=== PATIENT | male | born 1955 | race Caucasian/White ===

== ENCOUNTER 2018-01-27 20:59 | Observation (INO) | payer OTHER ==
[2018-01-27] MEDS ORDERED: ONDANSETRON 4 MG/2 ML VIAL IVP STA (21:40)
[2018-01-27] MEDS ORDERED: MORPHINE SULFATE 4 MG/ML SYRINGE IV STA (21:40)
[2018-01-27] MEDS ORDERED: SODIUM CHLORIDE 0.9% 1,000 ML IV STA (21:40)
[2018-01-27] MEDS ORDERED: RX INFO: IV CONTRAST WAS GIVEN 1 EACH MISC MISCELLANE PRN (21:41)
[2018-01-27 21:54] LABS: Basophils # (A) 0.1 k/uL (0-0.2); Basophils % (A) 1 %; Eosinophils # (A) 0.3 k/uL (0-0.7); Eosinophils % (A) 3 %; HCT 43.5 % (39.0-53.0); HGB 15.3 gm/dL (13.0-17.5); Lymphocytes # (A) 2.5 k/uL (1.0-4.8); Lymphocytes % (A) 31 %; MCH 30.7 pg (25.0-35.0); MCHC 35.1 g/dL (31.0-37.0); MCV 87.2 fL (80.0-100.0); Mean Platelet Volume 7.4; Monocytes # (A) 0.5 k/uL (0-1.0); Monocytes % (A) 6 %; Neutrophils # (A) 4.8 k/uL (1.3-7.7); Neutrophils % (A) 59 %; Platelet Count 179 k/uL (150-450); RBC 4.99 m/uL (4.30-5.90); RDW 12.8 % (11.5-15.5); WBC 8.3 k/uL (3.8-10.6)
--- NOTE | 2018-01-27 21:54 | XR ---
EXAMINATION TYPE: XR chest 2V DATE OF EXAM: 01/27/2018 COMPARISON: 05/16/2014 HISTORY: Chest pain TECHNIQUE: Frontal and lateral views of the chest are obtained. FINDINGS: There is no heart failure nor confluent pneumonic infiltrate. Costophrenic angles are geri r. There are chest leads. IMPRESSION: Normal chest.
[2018-01-27 22:01] LABS: INR 1.1 (<1.2); Partial Thromboplastin Time 25.6 sec (22.0-30.0)
[2018-01-27 22:09] LABS: ALT 35 U/L (21-72); AST 29 U/L (17-59); Albumin 4.2 g/dL (3.5-5.0); Alkaline Phosphatase 102 U/L (38-126); Anion Gap 12 mmol/L; Blood Urea Nitrogen 17 mg/dL (9-20); Carbon Dioxide 26 mmol/L (22-30); Chloride 103 mmol/L (98-107); Creatine Kinase 226 U/L (55-170); Glucose 103 mg/dL (74-99); Magnesium 1.8 mg/dL (1.6-2.3); Potassium 4.5 mmol/L (3.5-5.1); Sodium 141 mmol/L (137-145); Total Bilirubin 0.5 mg/dL (0.2-1.3); Total Protein 6.5 g/dL (6.3-8.2)
[2018-01-27 22:22] LABS: Troponin I <0.012 ng/mL (0.000-0.034)
--- NOTE | 2018-01-27 23:04 | CT ---
EXAMINATION TYPE: CT angio chest DATE OF EXAM: 01/27/2018 10:51 PM COMPARISON: NONE HISTORY: Upper back pain x2 days. R/O dissection CT DLP: 629 mGycm Automated exposure control for dose reduction was used. CONTRAST: CTA scan of the thorax is performed with IV Contrast, patient injected with 100 mL of Isovue 370, pul monary embolism protocol. There are 3-D post processed images.. FINDINGS: The lungs are clear of infiltrate. There is no pleural effusion. There is no evidence of a pulmonary mass. Thoracic aorta is atheromatous. There is no evidence of aneurysm or dissection. There is no per icardial effusion. There is normal contrast opacification of the pulmonary arteries. There is no medi astinal adenopathy. There are no hilar masses. There is some spurring in the thoracic spine. I see no bony destructive process. The upper abdomen images show decreased enhancement of the left renal cortex compared to the right. T here is no hydronephrosis. IMPRESSION: NEGATIVE CT ANGIOGRAM OF THE CHEST. MILD ATHEROMATOUS CHANGE IN THE THORACIC AORTA. NO EVIDENCE OF PU LMONARY EMBOLISM. THERE IS NOTED DECREASED ENHANCEMENT OF THE LEFT KIDNEY COMPARED TO THE RIGHT THAT COULD RELATE TO RE NAL ISCHEMIA. I SEE NO OBVIOUS ARTERIAL STENOSIS. PYELONEPHRITIS IS ALSO POSSIBLE.
--- NOTE | 2018-01-28 00:33 | ED ---
Chest Pain HPI - General Chief Complaint: Chest Pain Stated Complaint: Chest Pain Time Seen by Provider: 01/27/18 21:26 Source: patient, family Mode of arrival: ambulatory Limitations: no limitations - History of Present Illness Initial Comments: 62 years old male presents with the upper back pain she said the back pain is gone on for last 01-2 days G he had a similar back pain when he had heart attacks 3 years ago and he ended up with a stent pain has been off-and-on he also has a history of aneurysm which is being followed by a [facility] because elevated history diabetes and hypertension. He denies any headaches no neck pain chest pain as such he has some shortness of breath no pleuritic chest pain no abdominal pain no frequency urgency dysuria - Related Data Home Medications Medication Instructions Recorded Confirmed Naproxen [Naprosyn] 500 mg PO Q12HR 01/27/18 01/27/18 Previous Rx's Medication Instructions Recorded Atorvastatin [Lipitor] 80 mg PO DAILY #30 tab 05/17/14 Clopidogrel [Plavix] 75 mg PO DAILY #30 tab 05/17/14 Lisinopril [Zestril] 10 mg PO DAILY #30 tab 05/17/14 Metoprolol Tartrate [Lopressor] 25 mg PO BID #60 tab 05/17/14 Nitroglycerin Sl Tabs [Nitrostat] 0.4 mg SUBLINGUAL Q5M PRN #25 tab 05/17/14 Allergies Allergy/AdvReac Type Severity Reaction Status Date / Time No Known Allergies Allergy Verified 01/27/18 21:32 Review of Systems ROS Statement: Those systems with pertinent positive or pertinent negative responses have been documented in the HPI. ROS Other: All systems not noted in ROS Statement are negative. Past Medical History Past Medical History: Diabetes Mellitus, GERD/Reflux, Hyperlipidemia, Hypertension History of Any Multi-Drug Resistant Organisms: None Reported Past Surgical History: Hernia Repair, Tonsillectomy Past Psychological History: No Psychological Hx Reported Smoking Status: Current every day smoker Past Alcohol Use History: Rare Past Drug Use History: None Reported - Past Family History Sister(s) Family Medical History: Hyperlipidemia Additional Family Medical History / Comment(s): Mutiple stents General Exam Limitations: no limitations Course Vital Signs 01/27/18 01/27/18 21:02 21:44 Temperature 98 F 98.7 F Pulse Rate 64 70 Respiratory 20 18 Rate Blood Pressure 180/81 176/76 O2 Sat by Pulse 98 98 Oximetry EKG is sinus rhythm ventricular rate is 61 NH interval is 222 QRS duration is 104, 80/QTc is 418/420 review of this EKG does not reveal any ST elevation or ST depression Disposition Clinical Impression: Chest pain, History of heart disease Disposition: ADMITTED IP TO THIS HOSP Condition: Good Referrals: Skinny Sims DO [Primary Care Provider] - 1-2 days
[2018-01-28] MEDS ORDERED: MORPHINE SULFATE 4 MG/ML SYRINGE IVP PRN (00:35)
[2018-01-28] MEDS ORDERED: NITROGLYCERIN SL TABS 0.4 MG TAB SUBLINGUAL PRN ×2 (00:35→00:39)
[2018-01-28 02:35] VITALS: BMI 25.2
[2018-01-28 04:28] LABS: Creatine Kinase 187 U/L (55-170)
[2018-01-28 04:42] LABS: Troponin I <0.012 ng/mL (0.000-0.034)
[2018-01-28 04:44] LABS: Creatine Kinase MB 3.3 ng/mL (0.0-2.4)
[2018-01-28 07:36] LABS: Glucose,Whole Blood 110 mg/dL (75-99)
[2018-01-28 08:39] VITALS: RESP 18
[2018-01-28] MEDS ORDERED: NAPROXEN 250 MG TAB PO SCH (09:00)
[2018-01-28] MEDS ORDERED: CLOPIDOGREL 75 MG TAB PO SCH (09:00)
[2018-01-28] MEDS ORDERED: ATORVASTATIN 80 MG TAB PO SCH (09:00)
[2018-01-28] MEDS ORDERED: METOPROLOL TARTRATE 25 MG TAB PO SCH (09:00)
[2018-01-28] MEDS ORDERED: LISINOPRIL 10 MG TAB PO SCH (09:00)
[2018-01-28 09:09] LABS: Creatine Kinase 153 U/L (55-170)
[2018-01-28 09:21] LABS: Troponin I <0.012 ng/mL (0.000-0.034)
[2018-01-28 09:31] LABS: Creatine Kinase MB 3.5 ng/mL (0.0-2.4)
[2018-01-28] MEDS ORDERED: AMINOPHYLLINE 500 MG/20 ML VIAL IV PRN (10:15)
[2018-01-28] MEDS ORDERED: REGADENOSON 0.4 MG/5 ML SYRINGE IV ONE (10:15)
[2018-01-28 12:39] LABS: Glucose,Whole Blood 114 mg/dL (75-99)
--- NOTE | 2018-01-28 13:08 | NM ---
EXAMINATION TYPE: NM stress lexiscan cardiolite DATE OF EXAM: 01/28/2018 COMPARISON: NONE HISTORY: Chest pain, hyperlipidemia, diabetes, prior catheterization and history of tobacco abuse. TECHNIQUE: After the intravenous administration of 9.7 mCi Tc 99m Sestamibi - Cardiolite resting SPE CT images acquired 45 minutes post injection. The patient received 0.4mg Lexiscan, 23.5 mCi Tc 99m Sestamibi - Stress images obtained [address] injection FINDINGS: Review of stress and rest SPECT images demonstrates no distinct perfusion abnormality. Incidental no te is made of physiologic apical thinning Gated analysis shows normal wall motion with an estimated l eft ventricular ejection fraction of 64 %. TID is within normal limits calculated at 1.15. IMPRESSION: 1. No scintigraphic evidence for reversible ischemia. 2. Estimated left ventricular ejection fraction of 64%.
--- NOTE | 2018-01-28 13:42 | P.CRDCN ---
History of Present Illness History of present illness: Mr. Natarajan is a pleasant 62-year-old male past medical history significant for coronary artery disease with stenting to mid-circumflex by Dr. Alba in 2013. He also had a 60-70% lesion in mid-LAD and chronic total occlusion of RCA. He also has hypertension, dyslipidemia, gastroesophageal reflux disease, abdominal aortic aneurysm and chronic tobacco use. He follows [facility] We have been asked to see him in consultation for chest pain. He complains of a nagging pain between shoulder blades that has been constant x2 days. He denies shortness of breath, nausea, vomiting, diaphoresis, palpitations or dizziness. No radiation of the pain and no specific aggravating or alleviating factors. EKG on arrival reveals sinus with first degree AVB with non-specific T-wave abnormalities. Chest xray is negative for an acute cardiopulmonary process. CT angio chest is negative for PE. Laboratory data reviewed, hgb 15.3, plt 179, sodium 141, potassium 4.5, creatinine 1.0, cardiac enzymes negative x3. Current cardiac medications include plavix 75 mg daily, lopressor 25 mg BID, lisinopril 10 mg daily, atorvastatin 80 mg daily and aspirin 81 mg daily. Review of Systems At the time of my exam: CONSTITUTIONAL: Denies fever. Denies chills. EYES: Denies blurred vision. Denies vision changes. Denies eye pain. EARS, NOSE, MOUTH & THROAT: Denies headache. Denies sore throat. Denies ear pain. CARDIOVASCULAR: Pain to the middle of the upper back, making. Denies chest pain. Denies shortness of breath. Denies orthopnea. Denies PND. Denies palpitations. RESPIRATORY: Denies cough. GASTROINTESTINAL: Denies abdominal pain. Denies diarrhea. Denies constipation. Denies nausea. Denies vomiting. MUSCULOSKELETAL: Denies myalgias. INTEGUMENTARY: Denies pruitis. Denies rash. NEUROLOGIC: Denies numbness. Denies tingling. Denies weakness. PSYCHIATRIC: Denies anxiety. Denies depression. ENDOCRINE: Denies fatigue. Denies weight change. Denies polydipsia. Denies polyurina. GENITOURINARY: Denies burning, hematuria or urgency with micturation. HEMATOLOGIC: Denies history of anemia. Denies bleeding. Past Medical History Past Medical History: Diabetes Mellitus, GERD/Reflux, Hyperlipidemia, Hypertension Additional Past Medical History / Comment(s): AAA - pt states 4.7cm last checked at the [place] History of Any Multi-Drug Resistant Organisms: None Reported Past Surgical History: Heart Catheterization With Stent, Hernia Repair, Tonsillectomy Past Anesthesia/Blood Transfusion Reactions: No Reported Reaction Date of Last Stent Placement:: 05/16/2014 Past Psychological History: No Psychological Hx Reported Smoking Status: Current every day smoker Past Alcohol Use History: Rare Past Drug Use History: None Reported - Past Family History Sister(s) Family Medical History: Hyperlipidemia, Myocardial Infarction ([place]) Additional Family Medical History / Comment(s): Mutiple stents - [place] at age 66 and at that time Medications and Allergies Home Medications Medication Instructions Recorded Confirmed Type Atorvastatin [Lipitor] 80 mg PO DAILY #30 tab 05/17/14 01/28/18 Rx Clopidogrel [Plavix] 75 mg PO DAILY #30 tab 05/17/14 01/28/18 Rx Lisinopril [Zestril] 10 mg PO DAILY #30 tab 05/17/14 01/28/18 Rx Metoprolol Tartrate [Lopressor] 25 mg PO BID #60 tab 05/17/14 01/28/18 Rx Nitroglycerin Sl Tabs [Nitrostat] 0.4 mg SUBLINGUAL Q5M PRN #25 tab 05/17/14 Rx Naproxen [Naprosyn] 500 mg PO Q12HR 01/27/18 01/28/18 History Aspirin [Adult Low Dose Aspirin EC] 81 mg PO BID 01/28/18 01/28/18 History Allergies Allergy/AdvReac Type Severity Reaction Status Date / Time No Known Allergies Allergy Verified 01/27/18 21:32 Physical Exam Vitals: Vital Signs Temp Pulse Pulse Resp BP BP Pulse Ox 01/28/18 07:50 97.9 F 58 L 18 153/56 94 L 01/28/18 02:57 98.5 F 58 L 16 139/69 97 01/28/18 02:45 58 L 16 01/28/18 01:19 74 16 152/65 97 01/28/18 00:57 98.4 F 64 16 141/64 94 L 01/27/18 21:44 98.7 F 70 18 176/76 98 01/27/18 21:02 98 F 64 20 180/81 98 Intake and Output 01/27/18 01/28/18 01/28/18 22:59 06:59 14:59 Other: Voiding Method Toilet Toilet # Voids 2 1 Weight 79.832 kg 79.832 kg Blood pressure 149/59 heart rate 65 afebrile maintaining oxygen saturation on room air GENERAL: This is a 62-year-old male in no apparent distress at the time of my examination. HEENT: Head is atraumatic, normocephalic. Pupils are equal, round. Sclerae anicteric. Conjunctivae are clear. Mucous membranes of the mouth are moist. Neck is supple. There is no jugular venous distention. No carotid bruit is heard. LUNGS: Clear to auscultation no wheezes, rales or rhonchi. No chest wall tenderness is noted on palpation or with deep breathing. HEART: Regular rate and rhythm without murmurs, rubs or gallops. S1 and S2 heard. ABDOMEN: Soft, nontender. Bowel sounds are heard. No organomegaly noted. EXTREMITIES: No evidence of peripheral edema and no calf tenderness noted. VASCULAR: Radial and dorsalis pedis pulses palpated, no evidence of clubbing. NEUROLOGIC: Patient is awake, alert and oriented x3. Results 01/27/18 21:18 01/27/18 21:18 Cardiac Enzymes 01/27/18 01/27/18 01/28/18 Range/Units :18 21:18 03:33 AST 29 (17-59) U/L CK-MB (CK-2) 4.0 H* 3.3 H* (0.0-2.4) ng/mL Troponin I <0.012 <0.012 (0.000-0.034) ng/mL Coagulation 01/27/18 Range/Units 21:18 PT 11.0 (9.0-12.0) sec APTT 25.6 (22.0-30.0) sec CBC 01/27/18 Range/Units 21:18 WBC 8.3 (3.8-10.6) k/uL RBC 4.99 (4.30-5.90) m/uL Hgb 15.3 (13.0-17.5) gm/dL Hct 43.5 (39.0-53.0) % Plt Count 179 (150-450) k/uL Comprehensive Metabolic Panel 01/27/18 Range/Units 21:18 Sodium 141 (137-145) mmol/L Potassium 4.5 (3.5-5.1) mmol/L Chloride 103 (98-107) mmol/L Carbon Dioxide 26 (22-30) mmol/L BUN 17 (9-20) mg/dL Creatinine 1.00 (0.66-1.25) mg/dL Glucose 103 H (74-99) mg/dL Calcium 9.0 (8.4-10.2) mg/dL AST 29 (17-59) U/L ALT 35 (21-72) U/L Alkaline Phosphatase 102 (38-126) U/L Total Protein 6.5 (6.3-8.2) g/dL Albumin 4.2 (3.5-5.0) g/dL Current Medications Generic Name Dose Route Start Last Admin Trade Name Freq PRN Reason Stop Dose Admin Aspirin 325 mg 01/29/18 09:00 Aspirin PO DAILY [facility] Atorvastatin Calcium 80 mg 01/28/18 09:00 Lipitor PO DAILY [facility] Clopidogrel Bisulfate 75 mg 01/28/18 09:00 Plavix PO DAILY [facility] Lisinopril 10 mg 01/28/18 09:00 Zestril PO DAILY [facility] Metoprolol Tartrate 25 mg 01/28/18 09:00 Lopressor PO BID [facility] Miscellaneous Information 1 each 01/27/18 21:41 Rx Info: Iv Contrast Was Given MISCELLANE 01/29/18 21:42 DAILY PRN Per Protocol Morphine Sulfate 2 mg 01/28/18 00:35 Morphine Sulfate (Inj) IVP Q5M PRN Chest Pain Naproxen 500 mg 01/28/18 09:00 Naprosyn PO Q12HR [facility] Nitroglycerin 0.4 mg 01/28/18 00:35 Nitrostat SUBLINGUAL Q5M PRN Chest Pain Intake and Output 01/27/18 01/28/18 01/28/18 22:59 06:59 14:59 Other: Voiding Method Toilet Toilet # Voids 2 1 Weight 79.832 kg 79.832 kg 01/27/18 21:18 01/27/18 21:18 Assessment and Plan Assessment: ASSESSMENT 1. Chest pain, atypical. An acute coronary event has been ruled out with no EKG evidence of ischemia and normal cardiac enzymes. 2. History of coronary artery disease with angioplasty to mid circumflex artery 2013 with totally occluded RCA and 60-70% disease to mid-LAD 3. Hypertension 4. Dyslipidemia 5. Diabetes mellitus 6. Chronic nicotine dependence 7. History of aortic ascending aneurysm PLAN Obtain 2D echocardiogram and doppler study to assess cardiac structure and function. Perform Lexiscan stress test to assess for reversible cardiac ischemia. Further recommendations will be based on clinical course. Thank you kindly for this consultation. Nurse Practitioner note has been reviewed, I agree with a documented findings and plan of care. Patient was seen and examined.
--- NOTE | 2018-01-28 15:01 | ECHOF ---
Referral Reason:cp MEASUREMENTS -------- HEIGHT: 152.4 cm WEIGHT: 79.8 kg BP: 153/76 RVIDd: 2.7 cm (< 3.3) IVSd: 1.3 cm (0.6 - 1.1) LVIDd: 3.5 cm (3.9 - 5.3) LVPWd: 1.4 cm (0.6 - 1.1) IVSs: 1.5 cm LVIDs: 2.7 cm LVPWs: 1.5 cm LA Diam: 2.4 cm (2.7 - 3.8) LAESV Index (A-L): 25.68 ml/m Ao Diam: 3.1 cm (2.0 - 3.7) AV Cusp: 1.6 cm (1.5 - 2.6) LA Diam: 3.0 cm (2.7 - 3.8) MV EXCURSION: 11.800 mm (> 18.000) MV EF SLOPE: 71 mm/s (70 - 150) EPSS: 0.2 cm MV E Sincere: 0.72 m/s MV DecT: 233 ms MV A Sincere: 0.80 m/s MV E/A Ratio: 0.89 RAP: 5.00 mmHg RVSP: 24.21 mmHg FINDINGS -------- Sinus rhythm. This was a technically good study. The left ventricular size is normal. There is mild concentric left ventricular hypertrophy. Overa ll left ventricular systolic function is normal with, an EF between 55 - 60 %. The right ventricle is normal in size. The left atrial size is normal. Normal LA size by volume 22+/-6 ml/m2. The right atrial size is normal. The aortic valve is trileaflet, and appears structurally normal. No aortic stenosis or regurgitation. Mild mitral annular calcification present. Mild mitral regurgitation is present. Mild tricuspid regurgitation present. There is no evidence of pulmonary hypertension. The right v entricular systolic pressure, as measured by Doppler, is 24.21mmHg. Trace/mild (physiologic) pulmonic regurgitation. The aortic root size is normal. There is no pericardial effusion. CONCLUSIONS -------- 1. The left ventricular size is normal. 2. There is mild concentric left ventricular hypertrophy. 3. Overall left ventricular systolic function is normal with, an EF between 55 - 60 %. 4. The right ventricle is normal in size. 5. Normal LA size by volume 22+/-6 ml/m2. 6. The aortic valve is trileaflet, and appears structurally normal. No aortic stenosis or regurgitati on. 7. Mild mitral annular calcification present. 8. Mild mitral regurgitation is present. 9. Mild tricuspid regurgitation present. 10. There is no evidence of pulmonary hypertension. 11. The right ventricular systolic pressure, as measured by Doppler, is 24.21mmHg. 12. Trace/mild (physiologic) pulmonic regurgitation. 13. The aortic root size is normal. 14. There is no pericardial effusion. WHEEL ALIGNER: Rosetta Martin RDCS
--- NOTE | 2018-01-28 15:35 | P.HPIM ---
History of Present Illness Please note that this is the first time taking care of the patient. He is an you admission and he cleared today for discharge This is an H&P and Discharge Summary This is a pleasant 62 years old male with past medical history of coronary artery disease status post stenting in 2013, hypertension, hyperlipidemia, GERD , abdominal aortic aneurysm, chronic tobacco use. Who presents because of acute back pain between both shoulder blades which is similar to his heart attack before, patient underwent CTPA which was negative for PE and he has been evaluated by electrophysiology nurse practitioner. He underwent stress test which was nonsignificant for reversible ischemia, his echo shows EF 55-60%. Patient currently complains is very minimal back pain, almost resolved completely as per patient. And patient thinks he can be discharged today Review of Systems CONSTITUTIONAL: No fever, no malaise, no fatigue. HEENT: No recent visual problems or hearing problems. Denied any sore throat. CARDIOVASCULAR: No orthopnea, PND, no palpitations, no syncope. PULMONARY: No shortness of breath, no cough, no hemoptysis. GASTROINTESTINAL: No diarrhea, no nausea, no vomiting, no abdominal pain. Normoactive bowel sounds. NEUROLOGICAL: No headaches, no weakness, no numbness. HEMATOLOGICAL: Denies any bleeding or petechiae. GENITOURINARY: Denies any burning micturition, frequency, or urgency. MUSCULOSKELETAL/RHEUMATOLOGICAL: Denies any joint pain, swelling, or any muscle pain. ENDOCRINE: Denies any polyuria or polydipsia. The rest of the 14-point review of systems is negative. Past Medical History Past Medical History: Diabetes Mellitus, GERD/Reflux, Hyperlipidemia, Hypertension Additional Past Medical History / Comment(s): AAA - pt states 4.7cm last checked at the [place] History of Any Multi-Drug Resistant Organisms: None Reported Past Surgical History: Heart Catheterization With Stent, Hernia Repair, Tonsillectomy Past Anesthesia/Blood Transfusion Reactions: No Reported Reaction Date of Last Stent Placement:: 05/16/2014 Past Psychological History: No Psychological Hx Reported Smoking Status: Current every day smoker Past Alcohol Use History: Rare Past Drug Use History: None Reported - Past Family History Sister(s) Family Medical History: Hyperlipidemia, Myocardial Infarction ([place]) Additional Family Medical History / Comment(s): Mutiple stents - [place] at age 64 and at that time Medications and Allergies Home Medications Medication Instructions Recorded Confirmed Type Atorvastatin [Lipitor] 80 mg PO DAILY #30 tab 05/17/14 01/28/18 Rx Clopidogrel [Plavix] 75 mg PO DAILY #30 tab 05/17/14 01/28/18 Rx Lisinopril [Zestril] 10 mg PO DAILY #30 tab 05/17/14 01/28/18 Rx Metoprolol Tartrate [Lopressor] 25 mg PO BID #60 tab 05/17/14 01/28/18 Rx Nitroglycerin Sl Tabs [Nitrostat] 0.4 mg SUBLINGUAL Q5M PRN #25 tab 05/17/14 Rx Naproxen [Naprosyn] 500 mg PO Q12HR 01/27/18 01/28/18 History Aspirin [Adult Low Dose Aspirin EC] 81 mg PO BID 01/28/18 01/28/18 History Allergies Allergy/AdvReac Type Severity Reaction Status Date / Time No Known Allergies Allergy Verified 01/27/18 21:32 Physical Exam Vitals: Vital Signs Temp Pulse Pulse Resp BP BP BP 01/28/18 12:30 97.8 F 65 18 149/59 01/28/18 12:00 65 18 01/28/18 07:50 97.9 F 58 L 18 153/56 01/28/18 02:57 98.5 F 58 L 16 139/69 01/28/18 02:45 58 L 16 01/28/18 01:19 74 16 152/65 01/28/18 00:57 98.4 F 64 16 141/64 01/27/18 21:44 98.7 F 70 18 176/76 01/27/18 21:02 98 F 64 20 180/81 Pulse Ox 01/28/18 12:30 96 01/28/18 12:00 01/28/18 07:50 94 L 01/28/18 02:57 97 01/28/18 02:45 01/28/18 01:19 97 01/28/18 00:57 94 L 01/27/18 21:44 98 01/27/18 21:02 98 Intake and Output 01/28/18 01/28/18 01/28/18 06:59 14:59 22:59 Intake Total 440 Balance 440 Intake: Oral 240 Other 200 Other: Voiding Method Toilet Toilet # Voids 2 1 Weight 79.832 kg GENERAL: The patient is alert and oriented x3, not in any acute distress. Well developed, well nourished. HEENT: Pupils are round and equally reacting to light. EOMI. No scleral icterus. No conjunctival pallor. Normocephalic, atraumatic. No pharyngeal erythema. No thyromegaly. CARDIOVASCULAR: S1 and S2 present. No murmurs, rubs, or gallops. PULMONARY: Chest is clear to auscultation, no wheezing or crackles. ABDOMEN: Soft, nontender, nondistended, normoactive bowel sounds. No palpable organomegaly. MUSCULOSKELETAL: No joint swelling or deformity. EXTREMITIES: No cyanosis, clubbing, or pedal edema. NEUROLOGICAL: Gross neurological examination did not reveal any focal deficits. SKIN: No rashes. Results CBC & Chem 7: 01/27/18 21:18 01/27/18 21:18 Labs: Abnormal Lab Results - Last 24 Hours (Table) 01/27/18 01/27/18 01/28/18 Range/Units 21:18 21:18 03:33 Glucose 103 H (74-99) mg/dL POC Glucose (mg/dL) (75-99) mg/dL Total Creatine Kinase 226 H 187 H (55-170) U/L CK-MB (CK-2) 4.0 H* 3.3 H* (0.0-2.4) ng/mL 01/28/18 01/28/18 01/28/18 Range/Units 07:33 08:16 12:32 Glucose (74-99) mg/dL POC Glucose (mg/dL) 110 H 114 H (75-99) mg/dL Total Creatine Kinase (55-170) U/L CK-MB (CK-2) 3.5 H* (0.0-2.4) ng/mL Thrombosis Risk Factor Assmnt - Choose All That Apply Each Risk Factor Represents 2 Points: Age 61-74 years Thrombosis Risk Factor Assessment Total Risk Factor Score: 2 Thrombosis Risk Factor Assessment Level: Low Risk Assessment and Plan Plan: -Acute Atypical chest pain, back pain has been evaluated by electrophysiology nurse practitioner team. Stress test shows no significant of reversible ischemia. Echo was done showing EF 55-60%. Patient chest pain is significantly improved and now is telling me is less than 1/10, he says is really very mild and he wants to go. Patient was been cleared by cardiology team for discharge. I agree patient's looks his stable and can be discharged home however he needs follow-up as an outpatient. I discussed the follow-up recommendation with the patient and he confirmed to me he will call to follow-up with his PCP within one week, and to follow up with his electrophysiology nurse practitioner at [facility] in 1-2 weeks -Hyperlipidemia continue with same treatment -Hypertension continue with same treatment
--- NOTE | 2018-01-28 15:36 | P.DS ---
Providers Date of admission: 01/28/18 00:35 Attending physician: Georgina Mcdermott Consults: 01/28/18 00:35 Consult Physician Urgent Consulting Provider: Tio Escalona Consult Reason/Comments: Chest pain with a history of coronary artery disease with stents in place Do you want consulting provider notified?: Yes [facility] Course: This is a pleasant 62 years old male presents with acute upper back pain of 2 days' duration which was now near completely resolved and is very minimal and the patient wants to be discharged today, patient has been evaluated by grid caster he had negative stress test. And he was cleared for discharge Please look at H and P from today for more details discharge information Patient Condition at Discharge: Good Plan - Discharge Summary New Discharge Prescriptions: No Action Atorvastatin [Lipitor] 80 mg PO DAILY #30 tab Clopidogrel [Plavix] 75 mg PO DAILY #30 tab Lisinopril [Zestril] 10 mg PO DAILY #30 tab Metoprolol Tartrate [Lopressor] 25 mg PO BID #60 tab Nitroglycerin Sl Tabs [Nitrostat] 0.4 mg SUBLINGUAL Q5M PRN #25 tab PRN Reason: Chest Pain Naproxen [Naprosyn] 500 mg PO Q12HR Aspirin [Adult Low Dose Aspirin EC] 81 mg PO BID Discharge Medication List Atorvastatin [Lipitor] 80 mg PO DAILY #30 tab 05/17/14 [Rx] Clopidogrel [Plavix] 75 mg PO DAILY #30 tab 05/17/14 [Rx] Lisinopril [Zestril] 10 mg PO DAILY #30 tab 05/17/14 [Rx] Metoprolol Tartrate [Lopressor] 25 mg PO BID #60 tab 05/17/14 [Rx] Nitroglycerin Sl Tabs [Nitrostat] 0.4 mg SUBLINGUAL Q5M PRN #25 tab 05/17/14 [Rx ] Naproxen [Naprosyn] 500 mg PO Q12HR 01/27/18 [History] Aspirin [Adult Low Dose Aspirin EC] 81 mg PO BID 01/28/18 [History] Follow up Appointment(s)/Referral(s): Ranulfo Hassan MD [STAFF PHYSICIAN] - 2 Weeks Skinny Sims DO [Primary Care Provider] - 1-2 days
--- NOTE | 2018-01-28 16:17 | EST ---
EXERCISE STRESS DATE OF SERVICE: 01/28/2018 AGE: 62 SEX: Male. HT: 5'10" WT: 176 pounds. PROTOCOL: Lexiscan Cardiolite STAGE: DURATION OF EXERCISE: HEART RATE REST: 71 BLOOD PRESSURE REST: 128/89 MAXIMUM HEART RATE ACHIEVED: 115 MAXIMUM BLOOD PRESSURE: 150/94 85% MPHR: 133 100% MPHR: 156 METS: INDICATIONS: Chest pain. CLINICAL INFORMATION: STRESS DATA: Pre-testing physical examination showed a heart rate of 71, pressure 128/89 mmHg. Baseline EKG showed sinus mechanism. Lexiscan 0.4 mg was given over 15 seconds per protocol. The maximum heart rate was 115 beats per minute and maximum pressure was 150/94 mmHg. Clinically the patient did not have any symptoms and the EKG did not show any significant ST or T-wave abnormalities concerning for ischemia. CONCLUSION: 1. Non-diagnostic electrocardiogram stress testing in response to Lexiscan. 2. Please follow up on the Cardiolite portion on separate report from the radiology department. MMODL / IJN: [id number] /
[2018-01-28 16:28] VITALS: BP 133/55; PULSE 59; TEMP 97.9
[2018-01-28 21:51] LABS: Hemoglobin A1C 6.3 % (4.0-6.0)
[2018-01-29] MEDS ORDERED: ASPIRIN 81 MG PO SCH (09:00)
[2018-01-29] MEDS ORDERED: ASPIRIN 325 MG TAB PO SCH (09:00)
== END 2018-01-28 16:50 | disposition home or self-care (01) ==
LOC: EC 20:59 → 3OBS 01-28 00:35
PROVIDERS: ADMIT Hospitalist; ATTEND Hospitalist
DX: R07.89 Other chest pain (principal); M54.6 Pain in thoracic spine; I25.10 Atherosclerotic heart disease of native coronary artery without angina pectoris; I25.82 Chronic total occlusion of coronary artery; I71.4 Abdominal aortic aneurysm, without rupture; I10 Essential (primary) hypertension; Z95.5 Presence of coronary angioplasty implant and graft; F17.200 Nicotine dependence, unspecified, uncomplicated; K21.9 Gastro-esophageal reflux disease without esophagitis; E78.5 Hyperlipidemia, unspecified; Z79.82 Long term (current) use of aspirin; Z79.02 Long term (current) use of antithrombotics/antiplatelets; Z79.1 Long term (current) use of non-steroidal anti-inflammatories (NSAID); Z79.899 Other long term (current) drug therapy; Z86.39 Personal history of other endocrine, nutritional and metabolic disease; Z82.49 Family history of ischemic heart disease and other diseases of the circulatory system; Z83.49 Family history of other endocrine, nutritional and metabolic diseases
CPT/HCPCS: 99285 ×2; 96374 ×2; 96375 ×2; 96361 ×4; 36415; 93005; 93017; 93306; 80053; 82550 ×2; 82553 ×2; 83735; 84484 ×2; 85025; 85610; 85730; 83036; 71046; 71275; 78452; G0378; A9500; J2270; J2405; J2785; Q9967

== ENCOUNTER 2019-10-14 16:55 | Emergency (ER) | payer OTHER ==
[2019-10-14 17:10] VITALS: TEMP 98
[2019-10-14 18:40] VITALS: BP 161/78; PULSE 82; RESP 18
[2019-10-14] MEDS ORDERED: METOPROLOL SUCCINATE (ER) 25 MG TAB.ER.24H PO STA (18:42)
--- NOTE | 2019-10-14 19:08 | ED ---
General Adult HPI - General Chief complaint: Recheck/Abnormal Lab/Rx Stated complaint: High BP Time Seen by Provider: 10/14/19 17:10 Source: patient, RN notes reviewed, old records reviewed Mode of arrival: ambulatory Limitations: no limitations - History of Present Illness Initial comments: This is a 64-year-old male who presents emergency department after having a stent placed yesterday at another facility. Patient states he has been having a week of headache as well as upper back pain in the shoulder blades. Patient states the pain continues even after the stent placement. Patient states he took his blood pressure at home and it was over 200 in each arm he called his bottom painter in the told to come the emergency department. Patient came in and states he feels fine he has no chest pain difficult breathing shortness of breath or palpitations. Patient states the back pain and headache did not change. Patient states he only came in because his blood pressure was over 200 and he was told to come in. Patient denies any fever chills. - Related Data Home Medications Medication Instructions Recorded Confirmed Aspirin [Adult Low Dose Aspirin EC] 81 mg PO BID 01/28/18 01/28/18 Previous Rx's Medication Instructions Recorded Atorvastatin [Lipitor] 80 mg PO DAILY #30 tab 05/17/14 Clopidogrel [Plavix] 75 mg PO DAILY #30 tab 05/17/14 Lisinopril [Zestril] 10 mg PO DAILY #30 tab 05/17/14 Metoprolol Tartrate [Lopressor] 25 mg PO BID #60 tab 05/17/14 Nitroglycerin Sl Tabs [Nitrostat] 0.4 mg SUBLINGUAL Q5M PRN #25 tab 05/17/14 Allergies Allergy/AdvReac Type Severity Reaction Status Date / Time dexamethasone Allergy Chest Pain Verified 10/14/19 17:10 Review of Systems ROS Statement: Those systems with pertinent positive or pertinent negative responses have been documented in the HPI. ROS Other: All systems not noted in ROS Statement are negative. Past Medical History Past Medical History: Cancer, Diabetes Mellitus, GERD/Reflux, Hyperlipidemia, Hypertension Additional Past Medical History / Comment(s): AAA - pt [facility] History of Any Multi-Drug Resistant Organisms: None Reported Past Surgical History: Heart Catheterization With Stent, Hernia Repair, Tonsillectomy Additional Past Surgical History / Comment(s): kidney stent Past Anesthesia/Blood Transfusion Reactions: No Reported Reaction Date of Last Stent Placement:: 05/16/2014 Past Psychological History: No Psychological Hx Reported Smoking Status: Current every day smoker Past Alcohol Use History: Rare Past Drug Use History: None Reported - Past Family History Sister(s) Family Medical History: Hyperlipidemia, Myocardial Infarction ([place]) Additional Family Medical History / Comment(s): Mutiple stents - [place] at age 64 and at that time General Exam - General Exam Comments Initial Comments: GENERAL: Patient is well-developed and well-nourished. Patient is nontoxic and well- hydrated and is in no acute distress. ENT: Neck is soft and supple. No significant lymphadenopathy is noted. Oropharynx is clear. Moist mucous membranes. Neck has full range of motion without eliciting any pain. EYES: The sclera were anicteric and conjunctiva were pink and moist. Extraocular movements were intact and pupils were equal round and reactive to light. Eyelids were unremarkable. PULMONARY: Unlabored respirations. Good breath sounds bilaterally. No audible rales rhonchi or wheezing was noted. CARDIOVASCULAR: There is a regular rate and rhythm without any murmurs gallops or rubs. ABDOMEN: Soft and nontender with normal bowel sounds. SKIN: Skin is clear with no lesions or rashes and otherwise unremarkable. NEUROLOGIC: Patient is alert and oriented x3. Cranial nerves II through XII are grossly intact. Motor and sensory are also intact. Normal speech, volume and content. Symmetrical smile. MUSCULOSKELETAL: Normal extremities with adequate strength and full range of motion. LYMPHATICS: No significant lymphadenopathy is noted PSYCHIATRIC: Normal psychiatric evaluation. Limitations: no limitations Course Vital Signs 10/14/19 10/14/19 10/14/19 17:07 18:20 18:30 Temperature 98.0 F Pulse Rate 80 78 82 Respiratory 20 18 16 Rate Blood Pressure 164/82 161/77 150/77 O2 Sat by Pulse 97 98 98 Oximetry 10/14/19 18:39 Temperature Pulse Rate 82 Respiratory 18 Rate Blood Pressure 161/78 O2 Sat by Pulse 100 Oximetry Medical Decision Making - Medical Decision Making Patient's blood pressure was taken multiple times every 10 minutes. Patient states his blood pressure here was at its baseline. Patient had not taken his evening metoprolol so was given to him here. Patient was comfortable going home he stated he would return if there are any symptoms. EKG showed normal sinus rhythm at 75 bpm OK interval 192 QRS 102 QT interval 424 QTC is 473 per patient's EKG shows no ST segment elevation or depression. I compared this EKG to an old EKG it did show Q waves in the inferior leads. Disposition Clinical Impression: Hypertension Disposition: HOME SELF-CARE Condition: Good Instructions (If sedation given, give patient instructions): Hypertension (ED) Is patient prescribed a controlled substance at d/c from ED?: No Referrals: [facility],Clinic [Primary Care Provider] - 1-2 days Time of Disposition: 19:07
== END 2019-10-14 19:19 | disposition home or self-care (01) ==
LOC: EC 16:55
DX: I10 Essential (primary) hypertension (principal); M54.6 Pain in thoracic spine; R51 Headache; F17.200 Nicotine dependence, unspecified, uncomplicated; Z88.8 Allergy status to other drugs, medicaments and biological substances; Z79.82 Long term (current) use of aspirin; Z85.9 Personal history of malignant neoplasm, unspecified; Z86.79 Personal history of other diseases of the circulatory system; Z95.5 Presence of coronary angioplasty implant and graft; Z96.0 Presence of urogenital implants; Z82.49 Family history of ischemic heart disease and other diseases of the circulatory system
CPT/HCPCS: 99284

== ENCOUNTER 2020-11-25 16:28 | Emergency (ER) | payer OTHER, MEDICARE ==
[2020-11-25 16:40] VITALS: TEMP 98.1
[2020-11-25] MEDS ORDERED: NITROGLYCERIN OINT 1 INCH/GM PACKET TOPICAL STA (16:55)
[2020-11-25] MEDS ORDERED: OXYMETAZOLINE 0.05% NASL SPRAY 1 SPRAY BOTTLE NASAL STA (16:56)
--- NOTE | 2020-11-25 16:59 | ED ---
ENT HPI - General Chief complaint: ENT Stated complaint: Nosebleed Time Seen by Provider: 11/25/20 16:42 Source: patient Mode of arrival: ambulatory Limitations: no limitations - History of Present Illness Initial comments: 65-year-old male presents to emergency department with a chief complaint of a nosebleed. He states this occurred since 5am. Patient reports he was planning on coming to the emergency department, however the bleeding stopped by 9 AM. However later returned again. States he is bleeding from both nostrils and is also swallowing and spitting up blood as well. He reports elevated blood pressure but states his blood pressure typically "jumps around", he denies any chest pain or shortness of breath. Patient takes Plavix and aspirin. He does report a rhinoplasty performed about 2 months ago as well as nasal polyp removal. - Related Data Home Medications Medication Instructions Recorded Confirmed Aspirin [Adult Low Dose Aspirin EC] 81 mg PO HS 01/28/18 11/25/20 Atorvastatin [Lipitor] 80 mg PO HS 11/25/20 11/25/20 Clopidogrel [Plavix] 75 mg PO HS 11/25/20 11/25/20 lisinopriL [Zestril] 10 mg PO HS 11/25/20 11/25/20 oxyCODONE HCL [OxyIR] 2.5 mg PO DAILY@0800 11/25/20 11/25/20 oxyCODONE HCL [OxyIR] 5 mg PO HS 11/25/20 11/25/20 Previous Rx's Medication Instructions Recorded Metoprolol Tartrate [Lopressor] 25 mg PO BID #60 tab 05/17/14 Nitroglycerin Sl Tabs [Nitrostat] 0.4 mg SUBLINGUAL Q5M PRN #25 tab 05/17/14 Cephalexin [Keflex] 500 mg PO Q6HR #28 cap 11/25/20 Allergies Allergy/AdvReac Type Severity Reaction Status Date / Time dexamethasone Allergy Chest Pain Verified 11/25/20 18:10 Review of Systems ROS Statement: Those systems with pertinent positive or pertinent negative responses have been documented in the HPI. ROS Other: All systems not noted in ROS Statement are negative. Past Medical History Past Medical History: Cancer, Diabetes Mellitus, GERD/Reflux, Hyperlipidemia, H ypertension Additional Past Medical History / Comment(s): AAA - pt states 4.7cm last checked at the [facility] History of Any Multi-Drug Resistant Organisms: None Reported Past Surgical History: Heart Catheterization With Stent, Hernia Repair, Tonsillectomy Additional Past Surgical History / Comment(s): kidney stent nasal polys removed Past Anesthesia/Blood Transfusion Reactions: No Reported Reaction Date of Last Stent Placement:: 05/16/2014 Past Psychological History: No Psychological Hx Reported Smoking Status: Current every day smoker Past Alcohol Use History: Rare Past Drug Use History: None Reported - Past Family History Sister(s) Family Medical History: Hyperlipidemia, Myocardial Infarction ([place]) Additional Family Medical History / Comment(s): Mutiple stents - [place] at age 64 and at that time General Exam Limitations: no limitations General appearance: alert, in no apparent distress Head exam: Present: atraumatic, normocephalic, normal inspection Eye exam: Present: normal appearance, PERRL, EOMI Pupils: Present: normal accommodation ENT exam: Present: normal exam, normal oropharynx (Bleeding from both nostrils. Unable to detect a source of bleeding. Residual blood noted from posterior pharynx), mucous membranes moist, TM's normal bilaterally, normal external ear exam Neck exam: Present: normal inspection, full ROM. Absent: tenderness Respiratory exam: Present: normal lung sounds bilaterally. Absent: respiratory distress Cardiovascular Exam: Present: regular rate, normal rhythm, normal heart sounds Extremities exam: Present: normal inspection, full ROM, normal capillary refill. Absent: tenderness Back exam: Present: normal inspection, full ROM. Absent: tenderness Neurological exam: Present: alert, oriented X3, normal gait Psychiatric exam: Present: normal affect, normal mood Skin exam: Present: warm, dry, intact, normal color Course Vital Signs 11/25/20 11/25/20 11/25/20 16:37 17:47 18:00 Temperature 98.1 F Pulse Rate 87 74 Respiratory 20 18 18 Rate Blood Pressure 199/72 174/74 181/85 O2 Sat by Pulse 96 100 Oximetry Medical Decision Making - Medical Decision Making 65-year-old male presents to emergency Department with a chief complaint of a nosebleed. On physical examination, he has bilateral epistaxis, mild bleeding only. I was not able to visualize the source of bleeding. He did have residual blood noted in the posterior pharynx. Possibly could be a posterior bleed. Nose clamp was immediately applied and Afrin as well. On reevaluation, patient reports significant decrease in bleeding. I also applied Nitropaste decrease his blood pressure as well as 25 mg of metoprolol which is what he takes at home. Patient was initially hypertensive, however this improved. Patient did report feeling anxious. He had a recent septoplasty, 3 weeks ago. For this reason I did not want to apply a Rhino Rocket. After a period of observation, patient has almost complete resolution of the bleeding. He can follow-up with his ENT specialist in the morning. Strict return parameters were thoroughly discussed with patient was understanding and agreeable. He did not have any lightheadedness, dizziness, nausea or vomiting. Case discussed with Disposition Clinical Impression: Epistaxis not due to trauma Disposition: HOME SELF-CARE Condition: Stable Instructions (If sedation given, give patient instructions): Nosebleed (ED) Additional Instructions: Follow-up with ENT. Return to emergency department if symptoms worsen. Prescriptions: Cephalexin [Keflex] 500 mg PO Q6HR #28 cap Is patient prescribed a controlled substance at d/c from ED?: No Referrals: [facility],Clinic [Primary Care Provider] - 1-2 days Time of Disposition: 19:10
[2020-11-25 17:48] VITALS: RESP 18
[2020-11-25] MEDS ORDERED: METOPROLOL SUCCINATE (ER) 25 MG TAB.ER.24H PO STA (18:07)
[2020-11-25 18:44] VITALS: BP 181/85; PULSE 74
== END 2020-11-25 19:16 | disposition home or self-care (01) ==
LOC: EC 16:28
DX: R04.0 Epistaxis (principal); R04.2 Hemoptysis; I10 Essential (primary) hypertension; K21.9 Gastro-esophageal reflux disease without esophagitis; E11.9 Type 2 diabetes mellitus without complications; E78.5 Hyperlipidemia, unspecified; F17.200 Nicotine dependence, unspecified, uncomplicated; Z79.02 Long term (current) use of antithrombotics/antiplatelets; Z79.82 Long term (current) use of aspirin; Z79.899 Other long term (current) drug therapy
CPT/HCPCS: 99283

== ENCOUNTER 2021-08-13 16:03 | Observation (INO) | payer OTHER, MEDICARE ==
[2021-08-13] MEDS ORDERED: LABETALOL 5 MG/ML VIAL MDV IVP STA (16:38)
[2021-08-13 16:50] LABS: Basophils # (A) 0.1 k/uL (0-0.2); Basophils % (A) 1 %; Eosinophils # (A) 0.2 k/uL (0-0.7); Eosinophils % (A) 3 %; HCT 46.1 % (39.0-53.0); HGB 15.9 gm/dL (13.0-17.5); Lymphocytes # (A) 0.8 k/uL (1.0-4.8); Lymphocytes % (A) 13 %; MCH 31.5 pg (25.0-35.0); MCHC 34.5 g/dL (31.0-37.0); MCV 91.4 fL (80.0-100.0); Mean Platelet Volume 7.2; Monocytes # (A) 0.3 k/uL (0-1.0); Monocytes % (A) 5 %; Neutrophils # (A) 4.7 k/uL (1.3-7.7); Neutrophils % (A) 77 %; Platelet Count 136 k/uL (150-450); RBC 5.04 m/uL (4.30-5.90); RDW 13.1 % (11.5-15.5); WBC 6.1 k/uL (3.8-10.6)
[2021-08-13 16:52] LABS: ALT 18 U/L (4-49); AST 28 U/L (17-59); African American GFR (CKD) >90 (>60 ml/min/1.73 sqM); Albumin 4.2 g/dL (3.5-5.0); Alkaline Phosphatase 95 U/L (38-126); Anion Gap 8 mmol/L; Blood Urea Nitrogen 20 mg/dL (9-20); Carbon Dioxide 25 mmol/L (22-30); Chloride 103 mmol/L (98-107); Glucose 125 mg/dL (74-99); Lipase 346 U/L (23-300); Magnesium 1.9 mg/dL (1.6-2.3); Non-African American GFR(CKD) 80 (>60 ml/min/1.73 sqM); Potassium 4.5 mmol/L (3.5-5.1); Sodium 136 mmol/L (137-145); Total Bilirubin 0.4 mg/dL (0.2-1.3)
[2021-08-13 16:56] LABS: Partial Thromboplastin Time 25.6 sec (22.0-30.0); Prothrombin Time 10.7 sec (9.0-12.0)
--- NOTE | 2021-08-13 17:27 | ED ---
Chest Pain HPI - General Chief Complaint: Chest Pain Stated Complaint: shoulder pain Time Seen by Provider: 08/13/21 16:25 Source: patient, RN notes reviewed Mode of arrival: ambulatory Limitations: no limitations - History of Present Illness Initial Comments: 66-year-old male presents emergency Department with chief complaint of chest back or shoulder pain. Patient states his been on and off for last week or so states his symptoms worsen. Taken nitro which seemed to help some. Patient has extensive cardiac history, history of AAA repair he states he's been told he had an aneurysm in his brain also but states that he has had no reports of aortic and years and chest. Patient continues to smoke daily. Coumadin the stomach and the pain worse at this time. Pain radiating into his arm today which worsened and concern patient. Patient does have a history of hypertension - Related Data Home Medications Medication Instructions Recorded Confirmed Aspirin [Adult Low Dose Aspirin EC] 81 mg PO HS 01/28/18 11/25/20 Atorvastatin [Lipitor] 80 mg PO HS 11/25/20 11/25/20 Clopidogrel [Plavix] 75 mg PO HS 11/25/20 11/25/20 lisinopriL [Zestril] 10 mg PO HS 11/25/20 11/25/20 oxyCODONE HCL [OxyIR] 2.5 mg PO DAILY@0800 11/25/20 11/25/20 oxyCODONE HCL [OxyIR] 5 mg PO HS 11/25/20 11/25/20 Previous Rx's Medication Instructions Recorded Metoprolol Tartrate [Lopressor] 25 mg PO BID #60 tab 05/17/14 Nitroglycerin Sl Tabs [Nitrostat] 0.4 mg SUBLINGUAL Q5M PRN #25 tab 05/17/14 Cephalexin [Keflex] 500 mg PO Q6HR #28 cap 11/25/20 Allergies Allergy/AdvReac Type Severity Reaction Status Date / Time dexamethasone Allergy Chest Pain Verified 08/13/21 16:07 Review of Systems ROS Statement: Those systems with pertinent positive or pertinent negative responses have been documented in the HPI. ROS Other: All systems not noted in ROS Statement are negative. EKG Findings - EKG Comments: EKG Findings:: EKG performed at 16:19 normal sinus rhythm rate of 74 HI 198 QRS 100 Qt/QTC 408/452 Past Medical History Past Medical History: Cancer, Diabetes Mellitus, GERD/Reflux, Hyperlipidemia, Hypertension Additional Past Medical History / Comment(s): AAA - pt [facility] History of Any Multi-Drug Resistant Organisms: None Reported Past Surgical History: Heart Catheterization With Stent, Hernia Repair, Tonsillectomy Additional Past Surgical History / Comment(s): kidney stent nasal polys removed Past Anesthesia/Blood Transfusion Reactions: No Reported Reaction Date of Last Stent Placement:: 05/16/2014 Past Psychological History: No Psychological Hx Reported Smoking Status: Current every day smoker Past Alcohol Use History: Rare Past Drug Use History: None Reported - Past Family History Sister(s) Family Medical History: Hyperlipidemia, Myocardial Infarction ([place]) Additional Family Medical History / Comment(s): Mutiple stents - [facility] at age 64 and at that time General Exam Limitations: no limitations General appearance: alert, in no apparent distress Head exam: Present: atraumatic, normocephalic, normal inspection Eye exam: Present: normal appearance, PERRL, EOMI. Absent: scleral icterus, conjunctival injection, periorbital swelling ENT exam: Present: normal exam, normal oropharynx, mucous membranes moist Neck exam: Present: normal inspection, full ROM. Absent: tenderness, meningismus, lymphadenopathy Respiratory exam: Present: normal lung sounds bilaterally. Absent: respiratory distress, wheezes, rales, rhonchi, stridor Cardiovascular Exam: Present: regular rate, normal rhythm, normal heart sounds. Absent: systolic murmur, diastolic murmur, rubs, gallop, clicks GI/Abdominal exam: Present: soft, normal bowel sounds. Absent: distended, tenderness, guarding, rebound, rigid Course Vital Signs 08/13/21 08/13/21 08/13/21 16:04 17:00 17:53 Temperature 98.0 F Pulse Rate 84 67 Respiratory 20 22 Rate Blood Pressure 210/92 191/100 176/65 O2 Sat by Pulse 98 95 Oximetry Chest Pain MDM - MDM 58-year-old with extensive cardiac history presented for shoulder pain, chest comfortably made for cardiology evaluation initial troponin is negative. Disposition Clinical Impression: Chest pain, History of heart disease Disposition: ADMITTED IP TO THIS HOSP Condition: Fair Referrals: [facility],Clinic [Primary Care Provider] - 1-2 days
--- NOTE | 2021-08-13 17:41 | XR ---
EXAMINATION TYPE: XR chest 2V DATE OF EXAM: 08/13/2021 COMPARISON: 520 3. HISTORY: Chest pain TECHNIQUE: 2 views FINDINGS: Heart and mediastinum are normal. Lungs are clear. Diaphragm is normal. Bony thorax is inta ct. There are chest leads. IMPRESSION: Normal chest. No change.
[2021-08-13] MEDS ORDERED: ASPIRIN 81 MG PO STA (17:59)
[2021-08-13] MEDS ORDERED: HEPARIN SODIUM 1,000 UN/ML (10ML VL) IV ONE (17:59)
[2021-08-13] MEDS ORDERED: NITROGLYCERIN SL TABS 0.4 MG TAB SUBLINGUAL PRN (17:59)
[2021-08-13] MEDS ORDERED: HEPARIN SOD,PORK IN 0.45% NACL 25,000 UNIT in 0.45% NACL 1 250ML.BAG IV SCH (18:00)
[2021-08-13] MEDS ORDERED: guaiFENesin-Coden 100-10MG/5ML 10 ML CUP PO PRN (20:55)
[2021-08-13] MEDS ORDERED: NICOTINE 21MG/24HR PATCH TRANSDERM STA (20:55)
[2021-08-13] MEDS: METOPROLOL TARTRATE 25 MG TAB PO SCH (21:00)
[2021-08-13] MEDS ORDERED: lisinopriL 10 MG TAB PO SCH (21:00)
[2021-08-13] MEDS: CLOPIDOGREL 75 MG TAB PO SCH (21:00)
[2021-08-13] MEDS: ATORVASTATIN 80 MG TAB PO SCH (21:00)
[2021-08-14] MEDS ORDERED: HEPARIN SODIUM 1,000 UN/ML (10ML VL) IV PRN (04:05)
[2021-08-14] MEDS: METOPROLOL TARTRATE 25 MG TAB PO SCH (08:37)
[2021-08-14] MEDS ORDERED: ASPIRIN 325 MG TAB PO SCH (09:00)
--- NOTE | 2021-08-14 10:34 | P.CRDCN ---
History of Present Illness History of present illness: HISTORY OF PRESENTING ILLNESS This is a pleasant 66-year-old male past medical history significant for coronary artery disease status post PCI to the mid circumflex in 2013, and PCI to the LAD per patient about 2 years ago at [facility], type 2 diabetes, hypertension, dyslipidemia, peripheral vascular disease, recent diagnosis of Lung Cancer with planned Left Lung tumor removal on August 26, 2021. He states he follow with a cardiology, Dr. Lalita Bro at the [facility] in [place]. We have been asked to see in consultation for chest pain. Patient presents to the emergency department with bilateral shoulder blade pain. He states the pain started about 2 days ago. Describes it as sharp and pressure. He states that this pain was similar to his MIs in the past. He also had associated left hand numbness. It is non- exertional. He states it would come and go over the past couple days. Yesterday he felt the pain increase in intensity and last longer, about 5-10 minutes. He denies any specific aggravating or alleviating factors. His pain has improved. He denies associated chest pain, diaphoresis, shortness of breath, nausea, vomiting, dizziness, lightheadedness, palpitations, syncope or presyncope. Denies orthopnea or PND. He states he had a stress test about 2 years ago with his cribber, it was abnormal, he underwent stenting to the LAD at that time. He is suppose to follow up with his cribber on 08/21/21. On admission, patient hypertensive. He states his blood pressure fluctuates frequently. DIAGNOSTICS EKG reveals sinus rhythm, heart rate 74, T wave inversion in leads aVL. Prior EKG appears similar findings. No acute ischemia noted. Telemetry tracings at bedside sinus mechanism HR 60s-70s. Chest xray no acute cardiopulmonary process. most recent echocardiogram 2018 revealed an EF of 5560% mild mitral regurgitation, mild tricuspid regurgitation. Laboratory reviewed,troponin negative 3, sodium 136, potassium 4.5, BUN 20, serum creatinine 0.9, magnesium 1.9, lipase 346, creatinine 19 PCR negative,WBC 6.1, hemoglobin 15.9, platelets 136. Current home medications include metoprolol tartrate 25 mg twice a day, lisinopril 10 mg nightly, Plavix 75 mg nightly, atorvastatin 80 mg nightly, aspirin 81 mg daily. REVIEW OF SYSTEMS At the time of my exam: CONSTITUTIONAL: Denies fever or chills. +bilateral shoulder blade pain CARDIOVASCULAR: Denies chest pain, shortness of breath, orthopnea, PND or palpitations. RESPIRATORY: Denies cough. GASTROINTESTINAL: Denies abdominal pain, diarrhea, constipation, nausea or vomiting. MUSCULOSKELETAL: Denies myalgias. NEUROLOGIC: Denies numbness, tingling, headache or weakness. ENDOCRINE: Denies fatigue, weight change, polydipsia or polyurina. GENITOURINARY: Denies burning, hematuria or urgency with micturation. HEMATOLOGIC: Denies history of anemia or bleeding. PHYSICAL EXAMINATION Blood pressure 150/71, heart rate 63, afebrile, saturations greater than 92% on room air CONSTITUTIONAL: No apparent distress. HEENT: Head is normocephalic. Pupils are equal, round. Sclerae anicteric. Mucous membranes of the mouth are moist. No JVD. No carotid bruit. CHEST EXAMINATION: Lungs are diminished bilaterally to auscultation. No chest wall tenderness is noted on palpation or with deep breathing. HEART EXAMINATION: Regular rate and rhythm. S1, S2 heard. systolic ejection murmur No, gallops or rub. ABDOMEN: Soft, nontender. Positive bowel sounds. EXTREMITIES: 2+ peripheral pulses, no lower extremity edema and no calf tenderness. SKIN: warm, dry NEUROLOGIC EXAMINATION: Patient is awake, alert and oriented x3. ASSESSMENT Bilateral shoulder blade pain, per patient similar to his previous MIs, no chest pain Hypertension Coronary artery disease status post PCI to the mid circumflex in 2013, and PCI to the LAD per patient about 2 years ago at [facility] Type 2 diabetes Dyslipidemia Peripheral vascular disease Lung Cancer with planned Left Lung tumor removal on August 26, 2021 PLAN -An acute coronary event has been ruled out with no EKG evidence of ischemia and negative cardiac enzymes. -Obtain records from patient's outpatient cribber -Obtain 2D echocardiogram and doppler study to assess cardiac structure and function. -Lipid Panel -Recommend starting carvedilol 6.25mg BID, stop metoprolol tartrate -Increase lisinopril to 20mg daily around 1200PM -Stop IV Heparin -Continue aspirin, statin, plavix -Continue cardiac telemetry -Further recommendations based on clinical course Thank you kindly for this consultation. Nurse Practitioner note has been reviewed, I agree with a documented findings and plan of care. Patient was seen and examined. Past Medical History Past Medical History: Cancer, Diabetes Mellitus, GERD/Reflux, Hyperlipidemia, Hypertension Additional Past Medical History / Comment(s): AAA - pt states [facility] History of Any Multi-Drug Resistant Organisms: None Reported Past Surgical History: Heart Catheterization With Stent, Hernia Repair, Tonsillectomy Additional Past Surgical History / Comment(s): kidney stent nasal polys removed Past Anesthesia/Blood Transfusion Reactions: No Reported Reaction Date of Last Stent Placement:: 05/16/2014 Past Psychological History: No Psychological Hx Reported Smoking Status: Current every day smoker Past Alcohol Use History: Rare Past Drug Use History: None Reported - Past Family History Sister(s) Family Medical History: Hyperlipidemia, Myocardial Infarction ([place]) Additional Family Medical History / Comment(s): Mutiple stents - [place] at age 66 and at that time Medications and Allergies Home Medications Medication Instructions Recorded Confirmed Type Metoprolol Tartrate [Lopressor] 25 mg PO BID #60 tab 05/17/14 08/13/21 Rx Aspirin [Adult Low Dose Aspirin EC] 81 mg PO HS 01/28/18 08/13/21 History Atorvastatin [Lipitor] 80 mg PO HS 11/25/20 08/13/21 History Clopidogrel [Plavix] 75 mg PO HS 11/25/20 08/13/21 History lisinopriL [Zestril] 10 mg PO HS 11/25/20 08/13/21 History Fluticasone Nasal [place] [Flonase 2 spray EA NOSTRIL BID PRN 08/13/21 08/13/21 History Nasal [place]] Loratadine 10 mg PO DAILY 08/13/21 08/13/21 History Sodium Chloride 0.65% Nasal [Deep 2 spray NASAL BID PRN 08/13/21 08/13/21 History Sea (Saline)] Vardenafil HCl [Levitra] 10 mg PO DAILY PRN MDD 4 08/13/21 08/13/21 History DOSES/MONTH Allergies Allergy/AdvReac Type Severity Reaction Status Date / Time dexamethasone Allergy Chest Pain Verified 08/13/21 18:59 Physical Exam Vitals: Vital Signs Temp Pulse Resp BP Pulse Ox 08/14/21 08:37 98.0 F 63 18 150/71 98 08/14/21 03:14 72 17 143/59 95 08/13/21 21:02 88 17 189/82 95 08/13/21 20:00 67 17 160/77 95 08/13/21 19:45 87 17 186/83 94 L 08/13/21 17:53 176/65 08/13/21 17:00 67 22 191/100 95 08/13/21 16:04 98.0 F 84 20 210/92 98 Intake and Output 08/13/21 08/14/21 08/14/21 22:59 06:59 14:59 Intake Total 81.293 Balance 81.293 Intake: Intake, IV Titration 81.293 Amount Heparin Sod,Pork in 0.45% 81.293 NaCl 25,000 unit In 0.45 % NaCl 1 250ml.bag @ 12 UNITS/KG/HR 9.471 mls/hr IV .Q24H [facility] Rx#: [id number] Other: Weight 78.925 kg Results 08/13/21 16:34 08/13/21 16:34 Cardiac Enzymes 08/13/21 08/13/21 08/13/21 Range/Units 16:34 16:34 19:02 AST 28 (17-59) U/L Troponin I <0.012 <0.012 (0.000-0.034) ng/mL 08/13/21 Range/Units 22:24 AST (17-59) U/L Troponin I <0.012 (0.000-0.034) ng/mL Coagulation 08/13/21 08/14/21 08/14/21 Range/Units 16:34 00:40 07:55 PT 10.7 (9.0-12.0) sec APTT 25.6 37.5 H 48.3 H (22.0-30.0) sec CBC 08/13/21 Range/Units 16:34 WBC 6.1 (3.8-10.6) k/uL RBC 5.04 (4.30-5.90) m/uL Hgb 15.9 (13.0-17.5) gm/dL Hct 46.1 (39.0-53.0) % Plt Count 136 L (150-450) k/uL Comprehensive Metabolic Panel 08/13/21 Range/Units 16:34 Sodium 136 L (137-145) mmol/L Potassium 4.5 (3.5-5.1) mmol/L Chloride 103 (98-107) mmol/L Carbon Dioxide 25 (22-30) mmol/L BUN 20 (9-20) mg/dL Creatinine 0.98 (0.66-1.25) mg/dL Glucose 125 H (74-99) mg/dL Calcium 9.0 (8.4-10.2) mg/dL AST 28 (17-59) U/L ALT 18 (4-49) U/L Alkaline Phosphatase 95 (38-126) U/L Total Protein 7.0 (6.3-8.2) g/dL Albumin 4.2 (3.5-5.0) g/dL Current Medications Generic Name Dose Route Start Last Admin Trade Name Freq PRN Reason Stop Dose Admin Aspirin 325 mg 08/14/21 09:00 08/14/21 08:37 Aspirin 325 Mg Tab PO 325 mg DAILY [facility] Administration Atorvastatin Calcium 80 mg 08/13/21 21:00 08/13/21 21:00 Atorvastatin 80 Mg Tab PO 80 mg HS [facility] Administration Clopidogrel Bisulfate 75 mg 08/13/21 21:00 08/13/21 21:00 Clopidogrel 75 Mg Tab PO 75 mg HS [facility] Administration Guaifenesin/Codeine Phosphate 10 ml 08/13/21 20:55 08/13/21 22:23 Guaifenesin-Coden 100-10mg/5ml 10 Ml Cup PO 10 ml Q6HR PRN Administration Cough Heparin Sodium (Porcine) 0 unit 08/14/21 04:05 08/14/21 04:13 Heparin Sodium 1,000 Un/Ml (10ml Vl) IV 2,000 unit PER PROTOCOL PRN Administration Low PTT Protocol Lisinopril 10 mg 08/13/21 21:00 08/13/21 21:00 Lisinopril 10 Mg Tab PO 10 mg HS [facility] Administration Metoprolol Tartrate 25 mg 08/13/21 21:00 08/14/21 08:37 Metoprolol Tartrate 25 Mg Tab PO 25 mg BID [facility] Administration Nitroglycerin 0.4 mg 08/13/21 17:59 Nitroglycerin Sl Tabs 0.4 Mg Tab SUBLINGUAL Q5M PRN Chest Pain Oxycodone HCl 2.5 mg 08/14/21 08:00 08/14/21 08:36 Oxycodone Hcl 5 Mg Tab PO Not Given DAILY@0800 [facility] Oxycodone HCl 5 mg 08/13/21 21:00 08/13/21 21:00 Oxycodone Hcl 5 Mg Tab PO Not Given HS [facility] Intake and Output 08/13/21 08/14/21 08/14/21 22:59 06:59 14:59 Intake Total 81.293 Balance 81.293 Intake: Intake, IV Titration 81.293 Amount Heparin Sod,Pork in 0.45% 81.293 NaCl 25,000 unit In 0.45 % NaCl 1 250ml.bag @ 12 UNITS/KG/HR 9.471 mls/hr IV .Q24H [facility] Rx#: [id number] Other: Weight 78.925 kg 08/13/21 16:34 08/13/21 16:34
--- NOTE | 2021-08-14 11:00 | ECHOF ---
Referral Reason:LV function MEASUREMENTS -------- HEIGHT: 162.6 cm WEIGHT: 78.9 kg BP: IVSd: 1.3 cm (0.6 - 1.1) LVIDd: 4.3 cm (3.9 - 5.3) LVPWd: 1.3 cm (0.6 - 1.1) EDV(Teich): 83 ml IVSs: 1.9 cm LVIDs: 2.7 cm LVPWs: 1.3 cm %IVS Thck: 51 % ESV(Teich): 28 ml EF(Teich): 67 % %FS: 37 % SV(Teich): 55 ml LA Diam: 3.5 cm (2.7 - 3.8) RVIDd: 3.3 cm (< 3.3) Ao Diam: 2.6 cm (2.0 - 3.7) LA Diam: 3.2 cm (2.7 - 3.8) AV Cusp: 1.8 cm (1.5 - 2.6) EPSS: 0.2 cm MV E Sincere: 0.58 m/s MV DecT: 202 ms MV Dec [place]: 2.9 m/s MV A Sincere: 0.95 m/s MV E/A Ratio: 0.60 MV PHT: 58 ms TR Vmax: 1.25 m/s TR maxP.24 mmHg RAP: 5.00 mmHg RVSP: 11.24 mmHg MV EF SLOPE: 64.31 mm/s (70 - 150) MV EXCURSION: 21.52 mm (> 18.000) FINDINGS -------- Sinus rhythm. This was a technically adequate study. The left ventricular size is normal. There is moderate concentric left ventricular hypertrophy. O verall left ventricular systolic function is low-normal with, an EF between 50 - 55 %. INFEROBASAL A ND INFEROSEPTAL HYPOKINESIS The right ventricle is normal in size. The left atrial size is normal. The right atrial size is normal. There is mild aortic valve sclerosis. There is no evidence of aortic regurgitation. Mild mitral regurgitation is present. Mild tricuspid regurgitation present. Right ventricular systolic pressure is normal at < 35 mmHg. There is no pulmonic regurgitation present. The aortic root size is normal. There is no pericardial effusion. CONCLUSIONS -------- 1. The left ventricular size is normal. 2. There is moderate concentric left ventricular hypertrophy. 3. Overall left ventricular systolic function is low-normal with, an EF between 50 - 55 %. 4. The right ventricle is normal in size. 5. The left atrial size is normal. 6. The right atrial size is normal. 7. There is mild aortic valve sclerosis. 8. Mild mitral regurgitation is present. 9. Mild tricuspid regurgitation present. 10. There is no pulmonic regurgitation present. 11. The aortic root size is normal. 12. There is no pericardial effusion. GRADUATE ASSISTANT: Rosetta Martin RDCS
[2021-08-14 12:16] LABS: Chol/HDL Ratio 3.12 Ratio; LDL Cholesterol,Calculated 79.4 mg/dL (0.0-131.0); VLDL Calculation 15.72 mg/dL (5.00-40.00)
[2021-08-14] MEDS: lisinopriL 20 MG TAB PO SCH (13:06)
[2021-08-14] MEDS: carvediloL 6.25 MG TAB PO SCH (17:51)
[2021-08-14] MEDS: ATORVASTATIN 80 MG TAB PO SCH (20:47)
[2021-08-14] MEDS: CLOPIDOGREL 75 MG TAB PO SCH (20:47)
[2021-08-14] MEDS ORDERED: lisinopriL 20 MG TAB PO SCH (21:00)
--- NOTE | 2021-08-14 22:48 | P.HPIM ---
History of Present Illness H&P Date: 08/14/21 Chief Complaint: Pain below the shoulder blade Patient is a 66-year-old male with a known history of hypertension, hyperlipidemia, history of lung cancer and is scheduled for resection, diabetes type 2, coronary disease with history of stent placement and currently everyday smoker and history of abdominal aortic aneurysm 4.7 cm and history of renal stent presents to ER with complaints of pain below the shoulder blades bilaterally. Pain radiates to the left arm. Associated with minimal short of breath. Pain started when he was at rest. Patient has been having symptoms on and off for the past 1 week and worsened yesterday which made him to come to ER. Patient felt like similar pain when he had stent placement. Patient took nitroglycerin which seemed to help. Denied any associated nausea or vomiting. No diaphoresis. Denied any leg swelling or calf tenderness. Chest x-ray showed normal chest. No change. EKG showed normal sinus rhythm Laboratory showed WBC 6.1 hemoglobin 15.9 and platelets 136 Lymphocytes 0.8 Sodium 136 potassium 4.5 chloride 103 BUN 20 and creatinine 0.98 blood sugar is 125 Troponin x3 - Lipase level is 346. Liver enzymes and alk phos within normal limits. COVID-19 PCR not detected. Review of Systems Constitutional: Patient denies any fever or chills . No generalized weakness or weight loss. Abdomen: Patient denied nausea vomiting and diarrhea and abdominal pain. Cardiovascular: Patient denies any chest pain or short of breath no palpitations. Respiratory: patient denied any cough or sputum production. No shortness of breath Neurologic: Patient denied any numbness or tingling headache. Musculoskeletal: Patient denies any complaints of joint swelling or deformity. Skin: Negative Psychiatric: Negative Endocrine: No heat or cold intolerance. No recent weight gain. Genitourinary: No dysuria or hematuria. All other 14 point ROS negative except the above Past Medical History Past Medical History: Cancer, Diabetes Mellitus, GERD/Reflux, Hyperlipidemia, Hypertension Additional Past Medical History / Comment(s): AAA - pt states 4.7cm last checked at the [place] History of Any Multi-Drug Resistant Organisms: None Reported Past Surgical History: Heart Catheterization With Stent, Hernia Repair, Tonsillectomy Additional Past Surgical History / Comment(s): kidney stent nasal polys removed Past Anesthesia/Blood Transfusion Reactions: No Reported Reaction Date of Last Stent Placement:: 05/16/2014 Past Psychological History: No Psychological Hx Reported Smoking Status: Current every day smoker Past Alcohol Use History: Rare Past Drug Use History: None Reported - Past Family History Sister(s) Family Medical History: Hyperlipidemia, Myocardial Infarction ([place]) Additional Family Medical History / Comment(s): Mutiple stents - [place] at age 66 and at that time Mother History Unknown: Yes Father Additional Family Medical History / Comment(s): Rheumatic fever/murmur, enlarged heart and of this at the age of 67yrs. Medications and Allergies Home Medications Medication Instructions Recorded Confirmed Type Metoprolol Tartrate [Lopressor] 25 mg PO BID #60 tab 05/17/14 08/13/21 Rx Aspirin [Adult Low Dose Aspirin EC] 81 mg PO HS 01/28/18 08/13/21 History Atorvastatin [Lipitor] 80 mg PO HS 11/25/20 08/13/21 History Clopidogrel [Plavix] 75 mg PO HS 11/25/20 08/13/21 History lisinopriL [Zestril] 10 mg PO HS 11/25/20 08/13/21 History Fluticasone Nasal [place] [Flonase 2 spray EA NOSTRIL BID PRN 08/13/21 08/13/21 History Nasal [place]] Loratadine 10 mg PO DAILY 08/13/21 08/13/21 History Sodium Chloride 0.65% Nasal [Deep 2 spray NASAL BID PRN 08/13/21 08/13/21 History Sea (Saline)] Vardenafil HCl [Levitra] 10 mg PO DAILY PRN MDD 4 08/13/21 08/13/21 History DOSES/MONTH Allergies Allergy/AdvReac Type Severity Reaction Status Date / Time dexamethasone Allergy Chest Pain Verified 08/13/21 18:59 Physical Exam Vitals: Vital Signs Temp Pulse Resp BP Pulse Ox 08/14/21 08:37 98.0 F 63 18 150/71 98 08/14/21 03:14 72 17 143/59 95 08/13/21 21:02 88 17 189/82 95 08/13/21 20:00 67 17 160/77 95 08/13/21 19:45 87 17 186/83 94 L 08/13/21 17:53 176/65 08/13/21 17:00 67 22 191/100 95 08/13/21 16:04 98.0 F 84 20 210/92 98 Intake and Output 08/13/21 08/14/21 08/14/21 22:59 06:59 14:59 Intake Total 81.293 Balance 81.293 Intake: Intake, IV Titration 81.293 Amount Heparin Sod,Pork in 0.45% 81.293 NaCl 25,000 unit In 0.45 % NaCl 1 250ml.bag @ 12 UNITS/KG/HR 9.471 mls/hr IV .Q24H [facility] Rx#: [id number] Other: Weight 78.925 kg PHYSICAL EXAMINATION: Patient is lying in the bed comfortably, no acute distress, awake alert and oriented.. HEENT: Normocephalic. Neck is supple. Pupils reactive. Nostrils clear. Oral cavi ty is moist. Neck reveals no JVD, carotid bruits, or thyromegaly. CHEST EXAMINATION: Trachea is central. Symmetrical expansion.Mild expiratory wheeze. Lung vogel clear to auscultation and percussion. CARDIAC: Normal S1, S2 with no gallops. No murmurs ABDOMEN: Soft. Bowel sounds normal. No organomegaly. No abdominal bruits. Extremities: reveal no edema. No clubbing or cyanosis Neurologically awake, alert, oriented x3 with well-coordinated movements. No focal deficits noted Skin: No rash or skin lesions. Psychiatric: Cooperative. Nonsuicidal Musculoskeletal: No joint swelling or deformity. Normal range of motion. Results CBC & Chem 7: 08/13/21 16:34 08/13/21 16:34 Labs: Abnormal Lab Results - Last 24 Hours (Table) 08/13/21 08/13/21 08/14/21 Range/Units 16:34 16:34 00:40 Plt Count 136 L (150-450) k/uL Lymphocytes # 0.8 L (1.0-4.8) k/uL APTT 37.5 H (22.0-30.0) sec Sodium 136 L (137-145) mmol/L Glucose 125 H (74-99) mg/dL Lipase 346 H (23-300) U/L 08/14/21 Range/Units 07:55 Plt Count (150-450) k/uL Lymphocytes # (1.0-4.8) k/uL APTT 48.3 H (22.0-30.0) sec Sodium (137-145) mmol/L Glucose (74-99) mg/dL Lipase (23-300) U/L Thrombosis Risk Factor Assmnt - DVT/VTE Prophylaxis DVT/VTE Prophylaxis: Pharmacologic Prophylaxis ordered Assessment and Plan Assessment: Bilateral pain below the shoulder blades. Rule out ACS. Rule out acute PE with underlying history of lung mass Lung mass. Currently being scheduled for left partial lobe resection on August 26, 2021. Patient was found to have nodule about 2 years ago which seem to be increasing in size recently and showed him PET scan as per patient. Coronary artery history of stent placement Diabetes type 2 Hypertension uncontrolled. Hyperlipidemia Peripheral vascular disease Abdominal aortic aneurysm 4.7 cm DVT prophylaxis. Plan: Patient will be continued telemetry monitoring. Heparin drip was started. Troponin x3 -. 2D echocardiogram was ordered to assess left ventricular function. will get D-dimer level. Blood pressure medications were adjusted per cardiology. Started on Coreg and metoprolol has been discontinued. Increase lisinopril to 20 mg daily. Continue with aspirin statins and Plavix. Current with home medications. Insulin sliding scale and follow-up closely. Currently patient denied any complaints of chest pain. Time with Patient: Greater than 30
[2021-08-15 02:17] VITALS: RESP 16
[2021-08-15] MEDS: carvediloL 6.25 MG TAB PO SCH (08:00)
[2021-08-15] MEDS: lisinopriL 20 MG TAB PO SCH (08:00)
[2021-08-15 08:27] VITALS: PULSE 62; TEMP 97.5
[2021-08-15] MEDS ORDERED: ASPIRIN 81 MG PO SCH (09:00)
--- NOTE | 2021-08-15 09:26 | CT ---
EXAMINATION TYPE: CT chest angio for PE DATE OF EXAM: 08/15/2021 COMPARISON: Chest x-ray 08/13/2021, CT chest 01/27/2018 HISTORY: bilateral scapula pain CT DLP: 483 mGycm Automated exposure control for dose reduction was used. CONTRAST: CT Chest for pulmonary embolism performed with with IV Contrast, patient injected with 100 mL of Isov ue 370. FINDINGS: Motion present on the exam. LUNGS: The left lower lobe shows a nodular density with some questionable central lucency, axial imag e #63, nodule measures 12 mm and is new compared to prior chest CT. Centrilobular emphysematous nguyễn es are present within the lungs. Some mild upper lobe subpleural nodularity is thought to be postinfl ammatory. There is no pleural effusion or pneumothorax seen. The tracheobronchial tree is patent. MEDIASTINUM: There is satisfactory enhancement of the pulmonary artery and its branches, there is no CT evidence for pulmonary embolism. There are no greater than 1 cm hilar or mediastinal lymph nodes. No pericardial effusion is seen. There are moderate coronary artery calcifications present AORTA: Aortic stent graft is present within the abdomen. OTHER: There is a right adrenal mass present which shows soft tissue attenuation and measures 2 cm i n size, present in similar to prior exam. Some dependent high attenuation within the gallbladder may reflect stones. There is thoracic spondylosis IMPRESSION: New left lower lobe pulmonary nodule, differential includes bronchogenic carcinoma, metastatic diseas e, consider PET/CT, pulmonary consult. Right adrenal mass is stable. Coronary artery disease.
[2021-08-15 09:48] LABS: Basophils # (A) 0.1 k/uL (0-0.2); Basophils % (A) 1 %; Eosinophils # (A) 0.3 k/uL (0-0.7); Eosinophils % (A) 6 %; HCT 52.1 % (39.0-53.0); HGB 16.9 gm/dL (13.0-17.5); Lymphocytes # (A) 1.3 k/uL (1.0-4.8); Lymphocytes % (A) 25 %; MCH 30.6 pg (25.0-35.0); MCHC 32.5 g/dL (31.0-37.0); Mean Platelet Volume 7.4; Monocytes # (A) 0.5 k/uL (0-1.0); Monocytes % (A) 9 %; Neutrophils # (A) 2.9 k/uL (1.3-7.7); Neutrophils % (A) 55 %; Platelet Count 124 k/uL (150-450); RBC 5.55 m/uL (4.30-5.90); RDW 13.3 % (11.5-15.5); WBC 5.2 k/uL (3.8-10.6)
[2021-08-15 09:53] LABS: African American GFR (CKD) 76 (>60 ml/min/1.73 sqM); Anion Gap 4 mmol/L; Blood Urea Nitrogen 15 mg/dL (9-20); Calcium 8.8 mg/dL (8.4-10.2); Carbon Dioxide 31 mmol/L (22-30); Chloride 102 mmol/L (98-107); Glucose 161 mg/dL (74-99); Non-African American GFR(CKD) 66 (>60 ml/min/1.73 sqM); Potassium 5.1 mmol/L (3.5-5.1); Sodium 137 mmol/L (137-145)
[2021-08-15] MEDS ORDERED: lisinopriL 10 MG TAB PO ONE (12:15)
[2021-08-15 13:04] VITALS: BP 134/72
--- NOTE | 2021-08-15 13:36 | P.PN ---
Subjective HISTORY OF PRESENTING ILLNESS This is a pleasant 66-year-old male past medical history significant for coronary artery disease status post PCI to the mid circumflex in 2013, and PCI to the L[facility] 10/2019 at the [facility], type 2 diabetes, hypertension, dyslipidemia, peripheral vascular disease, recent diagnosis of Lung Cancer with planned Left Lung tumor removal on August 26, 2021. He states he follow with a cardiology, Dr. Lalita Bro at the [facility] [place]. We have been asked to see in consultation for chest pain. Patient presents to the emergency department with bilateral shoulder blade pain. He states the pain started about 2 days ago. Describes it as sharp and pressure. He states that this pain was similar to his MIs in the past. He also had associated left hand numbness. It is non- exertional. He states it would come and go over the past couple days. Yesterday he felt the pain increase in intensity and last longer, about 5-10 minutes. He denies any specific aggravating or alleviating factors. His pain has improved. He denies associated chest pain, diaphoresis, shortness of breath, nausea, vomiting, dizziness, lightheadedness, palpitations, syncope or presyncope. Denies orthopnea or PND. He states he had a stress test about 2 years ago with his certified adapted physical educator, it was abnormal, he underwent stenting to the LAD at that time. He is suppose to follow up with his certified adapted physical educator on 08/21/21. On admission, patient hypertensive. He states his blood pressure fluctuates frequently. DIAGNOSTICS EKG reveals sinus rhythm, heart rate 74, T wave inversion in leads aVL. Prior EKG appears similar findings. No acute ischemia noted. Chest xray no acute cardiopulmonary process. Most recent echocardiogram 2018 revealed an EF of 5560% mild mitral regurgitation, mild tricuspid regurgitation. 08/15/2021: Patient seen at bedside, no acute distress. He denies any chest pain or shortness of breath or further bilateral shoulder blade pain. Echocardiogram revealed an EF of 5055 percent, mild mitral regurgitation, mild tricuspid regurgitation. His d-dimer was elevated. CTA was negative for pulmonary embolism, there was the left lower lobe pulmonary nodule noted. Records obtained from patient's certified adapted physical educator at the [facility], patient underwent Lexiscan stress test 10/05/2019 which was abnormal. Patient underwent PCI to the proximal to mid LAD in 10/14/2019. PHYSICAL EXAMINATION Vitals reviewed CONSTITUTIONAL: No apparent distress. HEENT: Neck Supple. No JVD CHEST EXAMINATION: Lungs are diminished bilaterally to auscultation. No chest wall tenderness is noted on palpation or with deep breathing. HEART EXAMINATION: Regular rate and rhythm. S1, S2 heard. systolic ejection murmur No, gallops or rub. ABDOMEN: Soft, nontender. Positive bowel sounds. EXTREMITIES: no lower extremity edema and no calf tenderness. NEUROLOGIC EXAMINATION: Patient is awake, alert and oriented x3. ASSESSMENT Bilateral shoulder blade pain, per patient similar to his previous MIs, no chest pain Hypertension Coronary artery disease status post PCI to the mid circumflex in 2013, and PCI to the LAD 10/2019 due to an abnormal lexiscan stress test Type 2 diabetes Dyslipidemia Peripheral vascular disease Lung Cancer with planned Left Lung tumor removal on August 26, 2021 PLAN -An acute coronary event has been ruled out with no EKG evidence of ischemia and negative cardiac enzymes. -Continue carvedilol 6.25mg BID, stop metoprolol tartrate -Increase lisinopril to 30mg daily around 1200PM -Continue aspirin, statin, plavix -From cardiology perspective, patient stable to be discharged home. Recommend follow-up with his primary certified adapted physical educator at the [facility]. Patient states that he has an appointment on 08/21/2021. Thank you kindly for this consultation. Nurse Practitioner note has been reviewed, I agree with a documented findings and plan of care. Patient was seen and examined. Objective - Vital Signs Vital signs: Vital Signs Temp 97.5 F L 08/15/21 07:00 Pulse 62 08/15/21 07:00 Resp 16 08/15/21 08:00 BP 134/72 08/15/21 13:03 Pulse Ox 93 L 08/15/21 07:00 Intake & Output 08/14/21 08/15/21 08/15/21 18:59 06:59 18:59 Weight 78.925 kg Other: # Voids 1 3 - Labs CBC & Chem 7: 08/15/21 09:24 08/15/21 09:24 Labs: Abnormal Lab Results - Last 24 Hours (Table) 08/14/21 08/15/21 08/15/21 Range/Units 17:14 09:24 09:24 Plt Count 124 L (150-450) k/uL D-Dimer 3.38 H (<0.60) mg/L FEU Carbon Dioxide 31 H (22-30) mmol/L Glucose 161 H (74-99) mg/dL
[2021-08-16] MEDS ORDERED: lisinopriL 10 MG TAB PO SCH (09:00)
--- NOTE | 2021-08-16 09:13 | P.DS ---
Providers Date of admission: 08/13/21 18:38 Expected date of discharge: 08/15/21 Attending physician: Rodrigo Montalvo Consults: 08/13/21 17:59 Consult Physician Urgent Consulting Provider: Ranulfo Hassan Consult Reason/Comments: chest pain Do you want consulting provider notified?: Yes Primary care physician: [facility] Hospital Course: Final Diagnosis Bilateral pain below the shoulder blades. Ruled out ACS. Ruled out acute PE with underlying history of lung mass Lung mass. Currently being scheduled for left partial lobe resection on August 26, 2021. Patient was found to have nodule about 2 years ago which seem to be increasing in size recently and showed him PET scan as per patient. Coronary artery disease with history of stent placement Diabetes type 2 Hypertension uncontrolled. Hyperlipidemia Peripheral vascular disease Abdominal aortic aneurysm 4.7 cm DVT prophylaxis Discharge disposition Patient is being discharged in a stable condition with guarded prognosis to home. Patient will follow-up with [facility] in the outpatient setting upon discharge. Patient is to follow-up with his visual merchandising specialist and surgeon along with his police department secretary as discussed. Total time taken is greater than 35 minutes. Hospital course Patient is a 66-year-old male with a known history of hypertension, hyperlipidemia, history of lung cancer and is scheduled for resection, diabetes type 2, coronary disease with history of stent placement and currently everyday smoker and history of abdominal aortic aneurysm 4.7 cm and history of renal stent presents to ER with complaints of pain below the shoulder blades bilaterally. Pain radiates to the left arm. Associated with minimal short of breath. Pain started when he was at rest. Patient has been having symptoms on and off for the past 1 week and worsened yesterday which made him to come to ER. Patient felt like similar pain when he had stent placement. Patient took nitroglycerin which seemed to help. Denied any associated nausea or vomiting. No diaphoresis. Denied any leg swelling or calf tenderness. Chest x-ray showed normal chest. No change. EKG showed normal sinus rhythm Laboratory showed WBC 6.1 hemoglobin 15.9 and platelets 136 Lymphocytes 0.8 Sodium 136 potassium 4.5 chloride 103 BUN 20 and creatinine 0.98 blood sugar is 125 Troponin x3 - Lipase level is 346. Liver enzymes and alk phos within normal limits. COVID-19 PCR not detected. 08/15/2021 Patient is seen and evaluated and follow-up feeling much better and extremely anxious to go home. Patient has a scheduled appointment for surgery intervention regarding pulmonary nodules with a surgeon visual merchandising specialist for next week Thursday. Patient also follows with a police department secretary out of town and will continue. Patient to follow with the [facility] on discharge. Patient was started on Coreg and will continue on 30 mg of lisinopril in again instructed to follow-up with his primary care provider along with the pulmonary and cardiology outpatient. Currently no reports of chest pain, shortness of breath, or palpitations. Patient is afebrile. No reports of nausea or vomiting and patient is tolerating diet. Patient will be discharged home today. PHYSICAL EXAMINATION: GENERAL: The patient is alert and oriented x3. Well developed, well nourished. HEENT: Pupils are round and equally reacting to light. EOMI. No scleral icterus. No conjunctival pallor. Normocephalic, atraumatic. No pharyngeal erythema. No thyromegaly. CARDIOVASCULAR: S1 and S2 present. No murmurs, rubs, or gallops. PULMONARY: diminished breath sounds bilaterally with no wheezing or rhonchi noted ABDOMEN: Soft, nontender, nondistended, normoactive bowel sounds. No palpable organomegaly. MUSCULOSKELETAL: No joint swelling or deformity. EXTREMITIES: No cyanosis, clubbing, or pedal edema. NEUROLOGICAL: Gross neurological examination did not reveal any focal deficits. SKIN: No rashes. Please refer to medication reconciliation sheet for a list of medications. Patient Condition at Discharge: Fair Plan - Discharge Summary Discharge Rx Participant: No New Discharge Prescriptions: New carvediloL [Coreg] 6.25 mg PO BID-W/MEALS 30 Days #60 tab lisinopriL [Zestril] 30 mg PO DAILY 30 Days #90 tab Continue Aspirin [Adult Low Dose Aspirin EC] 81 mg PO HS Vardenafil HCl [Levitra] 10 mg PO DAILY PRN MDD 4 DOSES/MONTH PRN Reason: E.D. Loratadine 10 mg PO DAILY Atorvastatin [Lipitor] 80 mg PO HS Clopidogrel [Plavix] 75 mg PO HS Sodium Chloride 0.65% Nasal [Deep Sea (Saline)] 2 spray NASAL BID PRN PRN Reason: Allergy Symptoms Fluticasone Nasal [place] [Flonase Nasal [place]] 2 spray EA NOSTRIL BID PRN PRN Reason: Allergy Symptoms Discontinued Metoprolol Tartrate [Lopressor] 25 mg PO BID #60 tab lisinopriL [Zestril] 10 mg PO HS Discharge Medication List Aspirin [Adult Low Dose Aspirin EC] 81 mg PO HS 01/28/18 [History] Atorvastatin [Lipitor] 80 mg PO HS 11/25/20 [History] Clopidogrel [Plavix] 75 mg PO HS 11/25/20 [History] Fluticasone Nasal [place] [Flonase Nasal [place]] 2 spray EA NOSTRIL BID PRN 08/13/21 [History] Loratadine 10 mg PO DAILY 08/13/21 [History] Sodium Chloride 0.65% Nasal [Deep Sea (Saline)] 2 spray NASAL BID PRN 08/13/21 [History] Vardenafil HCl [Levitra] 10 mg PO DAILY PRN MDD 4 DOSES/MONTH 08/13/21 [History] carvediloL [Coreg] 6.25 mg PO BID-W/MEALS 30 Days #60 tab 08/15/21 [Rx] lisinopriL [Zestril] 30 mg PO DAILY 30 Days #90 tab 08/15/21 [Rx] Follow up Appointment(s)/Referral(s): [facility],Clinic [Primary Care Provider] - 1-2 days Patient Instructions/Handouts: How to Stop Smoking ([facility]), Chronic Hypertension ([facility]) Activity/Diet/Wound Care/Special Instructions: Follow up with your primary police department secretary at the [facility] on your scheduled appointment on 08/21/2021 Activity Limited until follow-up Follow-up with your visual merchandising specialist as scheduled appointment Follow-up with cardiology as discussed Continue taking medications as prescribed Continue heart healthy diet May resume pain meds as needed Discharge Disposition: HOME SELF-CARE
== END 2021-08-15 13:49 | disposition home or self-care (01) ==
LOC: EC 16:03 → 1SOBS 18:38 → 6NMEDSUR 19:55
PROVIDERS: ADMIT Internal Medicine; ATTEND Internal Medicine
DX: R07.89 Other chest pain (principal); M25.519 Pain in unspecified shoulder; C34.32 Malignant neoplasm of lower lobe, left bronchus or lung; F17.200 Nicotine dependence, unspecified, uncomplicated; Z20.822 Contact with and (suspected) exposure to COVID-19; I25.10 Atherosclerotic heart disease of native coronary artery without angina pectoris; I11.9 Hypertensive heart disease without heart failure; I71.4 Abdominal aortic aneurysm, without rupture; E27.9 Disorder of adrenal gland, unspecified; M47.894 Other spondylosis, thoracic region; E78.5 Hyperlipidemia, unspecified; E11.51 Type 2 diabetes mellitus with diabetic peripheral angiopathy without gangrene; R20.0 Anesthesia of skin; I08.1 Rheumatic disorders of both mitral and tricuspid valves; I25.2 Old myocardial infarction; K21.9 Gastro-esophageal reflux disease without esophagitis; Z79.899 Other long term (current) drug therapy; Z79.82 Long term (current) use of aspirin; Z79.02 Long term (current) use of antithrombotics/antiplatelets; Z88.8 Allergy status to other drugs, medicaments and biological substances; Z71.6 Tobacco abuse counseling; Z95.5 Presence of coronary angioplasty implant and graft; Z86.79 Personal history of other diseases of the circulatory system; Z85.118 Personal history of other malignant neoplasm of bronchus and lung; Z85.22 Personal history of malignant neoplasm of nasal cavities, middle ear, and accessory sinuses; Z82.49 Family history of ischemic heart disease and other diseases of the circulatory system
CPT/HCPCS: 99285; 96376 ×2; 96365; 96366 ×2; 96375; 36415; 93005; 93306; 85379; 80061; 80053; 80048; 83690; 83735; 84484; 85025 ×2; 85610; 85730 ×2; 87635; 71046; 71275; G0378 ×3; S4990; J1644 ×3; Q9967

== ENCOUNTER 2022-09-23 19:22 | Emergency (ER) | payer OTHER, MEDICARE ==
[2022-09-23 19:43] VITALS: TEMP 97.7
[2022-09-23] MEDS ORDERED: hydrALAZINE HCL 20 MG/ML 1 ML VIAL IVP STA (19:56)
[2022-09-23 20:58] LABS: Basophils # (A) 0.1 k/uL (0-0.2); Basophils % (A) 1 %; Eosinophils # (A) 0.1 k/uL (0-0.7); Eosinophils % (A) 1 %; HCT 51.7 % (39.0-53.0); HGB 15.8 gm/dL (13.0-17.5); Lymphocytes # (A) 1.5 k/uL (1.0-4.8); Lymphocytes % (A) 16 %; MCH 28.4 pg (25.0-35.0); MCHC 30.5 g/dL (31.0-37.0); Mean Platelet Volume 7.7; Monocytes # (A) 0.5 k/uL (0-1.0); Monocytes % (A) 5 %; Neutrophils # (A) 7.4 k/uL (1.3-7.7); Neutrophils % (A) 76 %; Platelet Count 146 k/uL (150-450); RBC 5.56 m/uL (4.30-5.90); WBC 9.7 k/uL (3.8-10.6)
--- NOTE | 2022-09-23 21:04 | CT ---
EXAMINATION TYPE: CT brain wo con DATE OF EXAM: 09/23/2022 COMPARISON: None HISTORY: Sudden onset headache, vomiting. no injury CT DLP: 1294 mGycm Automated exposure control for dose reduction was used. Images of the brain obtained with no contrast. There is extensive high attenuation in the subarachnoid space at the ak chin of Mathews. There is exten lonnie into the cerebellar tentorium and the perimesencephalic cistern. There is high attenuation in th e fourth ventricle. There is some enlargement of the temporal horns of the lateral ventricles. There is no midline shift. No significant mass effect. IMPRESSION: Massive acute subarachnoid hemorrhage with most of the hemorrhage at the ak chin of Mathews. Exam was discussed with emergency room attending staff at 4:00 PM.
--- NOTE | 2022-09-23 21:17 | ED ---
Headache HPI - General Mode of arrival: EMS Limitations: no limitations <Dianne Lovell - Last Filed: 09/24/22 04:03> <Nathan Malhotra - Last Filed: 09/24/22 15:17> - General Chief Complaint: Headache Stated Complaint: Headache, vomiting Time Seen by Provider: 09/23/22 19:48 - History of Present Illness Initial Comments: Patient is a 67-year-old male presenting with chief complaint of headache. Patient has history of cerebral aneurysm. Patient states that at 6:00 PM he developed sudden onset severe right-sided headache. At time of presentation patient states that the pain has spread throughout the head and into his neck. He admits to photosensitivity. He admits to nausea and vomiting. No loss of consciousness. He denies any injury or trauma. Patient is on Plavix and aspirin. (Dianne Lovell) - Related Data Home Medications Medication Instructions Recorded Confirmed Aspirin [Adult Low Dose Aspirin EC] 81 mg PO HS 01/28/18 08/13/21 Atorvastatin [Lipitor] 80 mg PO HS 11/25/20 08/13/21 Clopidogrel [Plavix] 75 mg PO HS 11/25/20 08/13/21 Fluticasone Nasal [place] [Flonase 2 spray EA NOSTRIL BID PRN 08/13/21 08/13/21 Nasal [place]] Loratadine 10 mg PO DAILY 08/13/21 08/13/21 Sodium Chloride 0.65% Nasal [Deep 2 spray NASAL BID PRN 08/13/21 08/13/21 Sea (Saline)] Vardenafil HCl [Levitra] 10 mg PO DAILY PRN MDD 4 08/13/21 08/13/21 DOSES/MONTH Previous Rx's Medication Instructions Recorded carvediloL [Coreg] 6.25 mg PO BID-W/MEALS 30 Days #60 08/15/21 tab lisinopriL [Zestril] 30 mg PO DAILY 30 Days #90 tab 08/15/21 Allergies Allergy/AdvReac Type Severity Reaction Status Date / Time dexamethasone Allergy Chest Pain Verified 08/13/21 18:59 Review of Systems ROS Other: All systems not noted in ROS Statement are negative. <Dianne Lovell - Last Filed: 09/24/22 04:03> ROS Other: All systems not noted in ROS Statement are negative. <Nathan Malhotra Last Filed: 09/24/22 15:17> ROS Statement: Those systems with pertinent positive or pertinent negative responses have been documented in the HPI. Past Medical History Past Medical History: Cancer, Diabetes Mellitus, GERD/Reflux, Hyperlipidemia, Hypertension, Myocardial Infarction ([facility]) Additional Past Medical History / Comment(s): AAA - [facility] Myocardial Infarction Date:: 05/2014 History of Any Multi-Drug Resistant Organisms: None Reported Past Surgical History: Heart Catheterization With Stent, Hernia Repair, Tonsillectomy Additional Past Surgical History / Comment(s): kidney stent nasal polys removed Past Anesthesia/Blood Transfusion Reactions: No Reported Reaction Date of Last Stent Placement:: 05/16/2014 Past Psychological History: No Psychological Hx Reported Smoking Status: Current every day smoker Past Alcohol Use History: Rare Past Drug Use History: None Reported - Past Family History Sister(s) Family Medical History: Hyperlipidemia, Myocardial Infarction ([facility]) Additional Family Medical History / Comment(s): Mutiple stents - [place] at age 66 and at that time Mother History Unknown: Yes Father Additional Family Medical History / Comment(s): Rheumatic fever/murmur, enlarged heart and of this at the age of 67yrs. <Dianne Lovell - Last Filed: 09/24/22 04:03> General Exam Limitations: no limitations General appearance: alert, in no apparent distress Head exam: Present: atraumatic, normocephalic, normal inspection Eye exam: Present: normal appearance, PERRL, EOMI. Absent: scleral icterus, conjunctival injection, periorbital swelling Neck exam: Present: normal inspection, meningismus Respiratory exam: Present: normal lung sounds bilaterally. Absent: respiratory distress, wheezes, rales, rhonchi, stridor Cardiovascular Exam: Present: regular rate, normal rhythm, normal heart sounds. Absent: systolic murmur, diastolic murmur, rubs, gallop, clicks Neurological exam: Present: alert, oriented X3, CN II-XII intact Expanded Patient oriented to: Present: person, place, time Speech: Present: fluid speech Cranial nerves: Facial Sensation: Normal Eye Response: (4) open spontaneously Motor Response: (6) obeys commands Verbal Response: (5) oriented Zac Total: 15 Psychiatric exam: Present: normal affect, normal mood Skin exam: Present: warm, dry, intact, normal color. Absent: rash <Dianne Lovell - Last Filed: 09/24/22 04:03> Course Vital Signs 09/23/22 09/23/22 09/23/22 19:31 21:00 22:00 Temperature 97.7 F Pulse Rate 64 77 80 Respiratory 16 16 18 Rate Blood Pressure 225/97 213/80 219/80 O2 Sat by Pulse 97 100 95 Oximetry 09/23/22 23:00 Temperature Pulse Rate 89 Respiratory 16 Rate Blood Pressure 154/66 O2 Sat by Pulse 94 L Oximetry Medical Decision Making - Lab Data Result diagrams: 09/23/22 20:24 09/23/22 20:24 <Dianne Lovell - Last Filed: 09/24/22 04:03> - Lab Data Result diagrams: 09/23/22 20:24 09/23/22 20:24 <Nathan Malhotra - Last Filed: 09/24/22 15:17> - Medical Decision Making Was pt. sent in by a medical professional or institution (, PA, HANDBAG FRAMES INSPECTOR, urgent care, hospital, or fdc...) When possible be specific @ -[No] Did you speak to anyone other than the patient for history (EMS, parent, family, police, friend...)? What history was obtained from this source @ -family member Did you review nursing and triage notes (agree or disagree)? Why? @ -[I reviewed and agree with nursing and triage notes] Were old charts reviewed (outside hosp., previous admission, EMS record, old EKG, old radiological studies, urgent care reports/EKG's, fdc records)? Report findings @ -[No old charts were reviewed] Differential Diagnosis (chest pain, altered mental status, abdominal pain women, abdominal pain men, vaginal bleeding, weakness, fever, dyspnea, syncope, headache, dizziness, GI bleed, back pain, seizure, CVA, palpatations, mental health)? @ -[facility] Differential Headache: Migraine, tension, cluster, carbon monoxide, central venous thrombosis, pension karma temporal arteritis, acute closure glaucoma, intercranial hemorrhage, mast oiditis, sinusitis, head injury this is not meant to be an all-inclusive list. EKG interpreted by me (3pts min.). @ -[As above] X-rays interpreted by me (1pt min.). @ -[None done] CT interpreted by me (1pt min.). @ -no, radiologist report is reviewed. CT shows massive acute subarachnoid hemorrhage with most of the hemorrhage at the alutiiq of Mathews. 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 There is approximately 50% stenosis of the origin of the right internal carotid artery. No evidence of intracranial aneurysm. Massive acute subarachnoid hemorrhage. There is narrowing of the A1 segment left anterior cerebral artery probably due to decreased blood flow. 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 U/S interpreted by me (1pt. min.). @ -[None done] What testing was considered but not performed or refused? (CT, X-rays, U/S, labs)? Why? @ -[None] What meds were considered but not given or refused? Why? @ -[None] Did you discuss the management of the patient with other professionals (pro fessionals i.e. , PA, HANDBAG FRAMES INSPECTOR, lab, RT, psych nurse, manager social responsibility, door furring installer, teacher, radio officer, case folder)? Give summary @ -Case discussed with on-call neuro interventionalist Dr. Ortiz. Case also discussed with Kj ORR from [facility]. Was smoking cessation discussed for >3mins.? @ -[No] Was critical care preformed (if so, how long)? @ -34 minutes Were there social determinants of health that impacted care today? How? (Homelessness, low income, unemployed, alcoholism, drug addiction, transportation, low edu. Level, literacy, decrease access to med. care, [place] [facility], rehab)? @ -[No] Was there de-escalation of care discussed even if they declined (Discuss DNR or withdrawal of care, Hospice)? DNR status @ -[No] What co-morbidities impacted this encounter? (DM, HTN, Smoking, COPD, CAD, C ancer, CVA, ARF, Chemo, Hep., AIDS, mental health diagnosis, sleep apnea, morbid obesity)? @ -Cerebral aneurysm, diabetes, hyperlipidemia, hypertension Was patient admitted / discharged? Hospital course, mention meds given and route, prescriptions, significant lab abnormalities, going to OR and other pertinent info. @ -Patient is a 67-year-old male presenting with chief complaint of sudden onset headache, nausea, vomiting. History of cerebral aneurysm. CT shows massive subarachnoid hemorrhage. I spoke with the neuro interventionalist who recommended transfer to [place]. He recommended keeping the systolic blood pressure under 140. Patient was started on a Cardene drip. I spoke with neurology PA from [facility] who accepted transfer. Patient and family are informed of plan and are agreeable. Patient is transferred by EMS. I discussed this case with my attending Dr. Malhotra. Undiagnosed new problem with uncertain prognosis? @ -[No] Drug Therapy requiring intensive monitoring for toxicity (Heparin, Nitro, Insulin, Cardizem)? @ -Cardene drip Were any procedures done? @ -[No] Diagnosis/symptom? @ -subarachnoid hemorrhage Acute, or Chronic, or Acute on Chronic? @ -Acute Uncomplicated (without systemic symptoms) or Complicated (systemic symptoms)? @ -Complicated Side effects of treatment? @ -[No] Exacerbation, Progression, or Severe Exacerbation? @ -[No] Poses a threat to life or bodily function? How? (Chest pain, [place], [place], pneumonia, PE, COPD, DKA, ARF, appy, cholecystitis, CVA, Diverticulitis, Homicidal, Suicidal, threat to staff... and all critical care pts) @ -Yes (Dianne Lovell) - Lab Data Lab Results 09/23/22 09/23/22 Range/Units 20:24 20:24 WBC 9.7 (3.8-10.6) k/uL RBC 5.56 (4.30-5.90) m/uL Hgb 15.8 (13.0-17.5) gm/dL Hct 51.7 (39.0-53.0) % MCV 93.0 (80.0-100.0) fL MCH 28.4 (25.0-35.0) pg MCHC 30.5 L (31.0-37.0) g/dL RDW 13.0 (11.5-15.5) % Plt Count 146 L (150-450) k/uL MPV 7.7 Neutrophils % 76 % Lymphocytes % 16 % Monocytes % 5 % Eosinophils % 1 % Basophils % 1 % Neutrophils # 7.4 (1.3-7.7) k/uL Lymphocytes # 1.5 (1.0-4.8) k/uL Monocytes # 0.5 (0-1.0) k/uL Eosinophils # 0.1 (0-0.7) k/uL Basophils # 0.1 (0-0.2) k/uL Sodium 138 (137-145) mmol/L Potassium 4.1 (3.5-5.1) mmol/L Chloride 104 (98-107) mmol/L Carbon Dioxide 30 (22-30) mmol/L Anion Gap 4 mmol/L BUN 15 (9-20) mg/dL Creatinine 0.75 (0.66-1.25) mg/dL Est GFR (CKD-EPI)AfAm >90 (>60 ml/min/1.73 sqM) Est GFR (CKD-EPI)NonAf >90 (>60 ml/min/1.73 sqM) Glucose 145 H (74-99) mg/dL Calcium 8.1 L (8.4-10.2) mg/dL Total Bilirubin 0.5 (0.2-1.3) mg/dL AST 28 (17-59) U/L ALT 21 (4-49) U/L Alkaline Phosphatase 96 (38-126) U/L Total Protein 6.6 (6.3-8.2) g/dL Albumin 4.0 (3.5-5.0) g/dL Critical Care Time Critical Care Time: Yes Total Critical Care Time: 34 <Nathan Malhotra - Last Filed: 09/24/22 15:17> Disposition Time of Disposition: 21:59 - Out of Hospital Transfer - Req. Specs Out of Hospital Transfer - Requested Specifics: Other Emergency Center ([facility]) <Dianne Lovell - Last Filed: 09/24/22 04:03> <Nathan Malhotra - Last Filed: 09/24/22 15:17> Clinical Impression: Subarachnoid hemorrhage Disposition: OTHER INSTITUTION NOT DEFINED Condition: Serious Referrals: [facility],Clinic [Primary Care Provider] - 1-2 days
[2022-09-23 21:20] LABS: ALT 21 U/L (4-49); AST 28 U/L (17-59); African American GFR (CKD) >90 (>60 ml/min/1.73 sqM); Alkaline Phosphatase 96 U/L (38-126); Anion Gap 4 mmol/L; Blood Urea Nitrogen 15 mg/dL (9-20); Calcium 8.1 mg/dL (8.4-10.2); Carbon Dioxide 30 mmol/L (22-30); Chloride 104 mmol/L (98-107); Glucose 145 mg/dL (74-99); Non-African American GFR(CKD) >90 (>60 ml/min/1.73 sqM); Potassium 4.1 mmol/L (3.5-5.1); Sodium 138 mmol/L (137-145); Total Bilirubin 0.5 mg/dL (0.2-1.3); Total Protein 6.6 g/dL (6.3-8.2)
--- NOTE | 2022-09-23 21:28 | CT ---
EXAMINATION TYPE: CT angio head neck DATE OF EXAM: 09/23/2022 COMPARISON: HISTORY: sudden onset headache, vomiting. no injury CT DLP: 587.2 mGycm Automated exposure control for dose reduction was used. CONTRAST: Performed with IV Contrast, patient injected with 65ml mL of Isovue 370. Images obtained from the aortic arch through the vertex of the brain with IV contrast. There are Thre e-D postprocessed images. There is normal branching pattern of the great vessels on the aortic arch. There is arterial flow in both subclavian arteries. There is moderate plaque formation at the right carotid artery bifurcation. There is approximate 50% stenosis at the origin of the right internal carotid artery. No evidence of flow in the left internal carotid artery. Left internal carotid artery appears occluded at its origi n There is arterial flow in the anterior middle and posterior cerebral arteries. There is arterial flow in both vertebral arteries. There is arterial flow in the vertebral basilar artery system. There is high attenuation around the brainstem at the [place] related to acute subarachnoid hemorrhag e. The anterior cerebral artery and middle cerebral artery on the left side appear to fill through th e anterior communicating artery. No intracranial arterial mass effect. There is narrowing of the A1 segment of the left anterior cereb ral artery. I see no evidence of an aneurysm. There is normal enhancement of the venous sinuses. 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 There is approximate 50% stenosis of the origin of the right internal carotid artery. No evidence of intracranial aneurysm. Massive acute subarachnoid hemorrhage. There is narrowing of the A1 segment left anterior cerebral artery probably due to decreased blood fl ow.
[2022-09-23] MEDS ORDERED: niCARdipine 20 MG in SODIUM CHLORIDE 0.9% 192 ML IV SCH (22:30)
[2022-09-23] MEDS ORDERED: ONDANSETRON 4 MG/2 ML VIAL IVP STA (22:58)
[2022-09-23 23:24] VITALS: BP 154/66; PULSE 89; RESP 16
== END 2022-09-23 23:00 | disposition other institution (70) ==
LOC: EC 19:22
DX: I60.9 Nontraumatic subarachnoid hemorrhage, unspecified (principal); E11.9 Type 2 diabetes mellitus without complications; E78.5 Hyperlipidemia, unspecified; I10 Essential (primary) hypertension; I25.2 Old myocardial infarction; F17.200 Nicotine dependence, unspecified, uncomplicated; Z88.8 Allergy status to other drugs, medicaments and biological substances; Z79.82 Long term (current) use of aspirin; Z79.899 Other long term (current) drug therapy
CPT/HCPCS: 99291 ×2; 96374 ×2; 96375 ×2; 96361 ×2; 36415; 80053; 85025; 70496; 70450; 70498; J0360; J2405; Q9967

== ENCOUNTER → 2023-04-06 | Outpatient (CLI) | payer OTHER ==
--- NOTE | 2023-04-06 12:26 | MR ---
EXAMINATION TYPE: MR brain wo/w con DATE OF EXAM: 04/06/2023 11:54 AM CLINICAL INDICATION:Male, 67 years old with history of BRAIN BLEED; COMPARISON: 11/17/2022, CT 09/23/2022. TECHNIQUE: Multi planar, multi sequence imaging was performed through the brain including: T1, T2, In version recovery, susceptibility weighted imaging and gradient echo imaging and Diffusion weighted im aging. The patient was then given intravenous contrast and multi planar, T1 fat-saturation images wer e obtained. IV Contrast: 7.5 mm Gadavist FINDINGS: The florez-white junctions, ventricular system, basal cisterns appear unremarkable. Diffusion-weighted imaging shows no evidence of restricted diffusion to suggest acute/subacute infarct. Intracranial art erial flow voids are maintained. Midline structures show no abnormality. Scattered foci of high T2 si gnal intensity are seen within the periventricular white matter. The susceptibility weighted images r eveal a few scattered blooming artifact foci compatible with the left cerebellum, right cerebellum, r ight parietal region. Micro-hemorrhage. After administration of gadolinium, no abnormal enhancement i s seen. The bone marrow signal is within normal limits. Paranasal sinuses and mastoid air cells: Paranasal sinus disease worse in the maxillary sinus on the right. Visualized orbits: Orbital contents are intact. IMPRESSION: 1. No evidence of intracranial mass, acute/subacute infarct, or abnormal enhancement. 2. Nonspecific white matter changes, likely related to small vessel ischemic disease 3. Paranasal sinus disease most pronounced in right maxillary sinus.
== END | disposition home or self-care (01) ==
LOC: RADMRIMAIN 10:31
PROVIDERS: ATTEND Psychiatry & Neurology Vascular Neurology
DX: I61.3 Nontraumatic intracerebral hemorrhage in brain stem (principal); R90.82 White matter disease, unspecified; J32.8 Other chronic sinusitis
CPT/HCPCS: 70553; A9585

== ENCOUNTER 2024-02-25 15:09 | Inpatient (IN) | payer OTHER, MEDICARE ==
[2024-02-25 16:41] LABS: Partial Thromboplastin Time 30.3 sec (22.0-30.0); Prothrombin Time 11.4 sec (10.0-12.5)
--- NOTE | 2024-02-25 16:53 | XR ---
EXAMINATION TYPE: XR chest 2V DATE OF EXAM: 02/25/2024 COMPARISON: 08/13/2021 INDICATION: Short of breath and low O2 sats TECHNIQUE: Frontal and lateral views of the chest are obtained. FINDINGS: The heart size is normal. The pulmonary vasculature is normal. Scattered infiltrates are present. Findings are nonspecific. Consider pneumonia. Follow-up is recomme nded.. IMPRESSION: 1. Mild scattered bilateral lung infiltrates. Correlate for pneumonia. Follow-up recommended.
[2024-02-25 17:10] LABS: Basophils % (A) 0 %; Eosinophils # (A) 0.1 k/uL (0-0.7); Eosinophils % (A) 1 %; HCT 46.5 % (39.0-53.0); HGB 15.2 gm/dL (13.0-17.5); Lymphocytes # (A) 0.7 k/uL (1.0-4.8); Lymphocytes % (A) 6 %; MCHC 32.8 g/dL (31.0-37.0); MCV 91.7 fL (80.0-100.0); Mean Platelet Volume 9.4; Monocytes # (A) 0.8 k/uL (0-1.0); Monocytes % (A) 7 %; Neutrophils % (A) 84 %; Platelet Count 143 k/uL (150-450); RBC 5.07 m/uL (4.30-5.90); RDW 12.9 % (11.5-15.5); WBC 11.9 k/uL (3.8-10.6)
[2024-02-25] MEDS: IPRATROPIUM-ALBUTEROL 3 ML NEB INHALATION STA (17:35)
[2024-02-25 17:38] LABS: ALT 19 U/L (4-49); AST 27 U/L (17-59); African American GFR (CKD) 62 (>60 ml/min/1.73 sqM); Albumin 4.1 g/dL (3.5-5.0); Alkaline Phosphatase 106 U/L (38-126); Anion Gap 7 mmol/L; Blood Urea Nitrogen 32 mg/dL (9-20); Calcium 8.7 mg/dL (8.4-10.2); Carbon Dioxide 25 mmol/L (22-30); Chloride 105 mmol/L (98-107); Glucose 157 mg/dL (74-99); Non-African American GFR(CKD) 54 (>60 ml/min/1.73 sqM); Potassium 5.2 mmol/L (3.5-5.1); Sodium 137 mmol/L (137-145); Total Bilirubin 0.7 mg/dL (0.2-1.3); Total Protein 6.8 g/dL (6.3-8.2)
[2024-02-25 17:46] LABS: NT-Pro-B-Type Natriuretic Pept 980 pg/mL
--- NOTE | 2024-02-25 18:14 | ED ---
SOB HPI - General Chief Complaint: Shortness of Breath Stated Complaint: FIDEL, Low O2 Time Seen by Provider: 02/25/24 15:13 Source: patient Mode of arrival: EMS Limitations: no limitations - History of Present Illness Initial Comments: 68-year-old male who presents emergency department from urgent care. Patient has had symptoms of an upper respiratory infection since Thursday. His has had similar symptoms. Over the course of the week he has had a decline in his status. He has a history of COPD and uses inhalers only when needed. He does not use any home oxygen. Today the patient was struggling to breathe and therefore they went into an urgent care. Urgent care found the patient to have an oxygen saturation of 72%. He was placed on a nonrebreather and transferred to our hospital. He was given Solu-Medrol 125 mg and a DuoNeb's breathing treatment en route to the hospital. states that he has had a low-grade fever. He denies chest pain. Does have a history of cardiac disease. No other alleviating, precipitating or modifying factors - Related Data Home Medications Medication Instructions Recorded Confirmed Atorvastatin [Lipitor] 80 mg PO HS 11/25/20 02/25/24 Clopidogrel [Plavix] 75 mg PO DAILY 11/25/20 02/25/24 Vardenafil HCl [Levitra] 10 mg PO DAILY PRN MDD 4 08/13/21 02/25/24 DOSES/MONTH Albuterol Sulfate [Albuterol 1 puff PO RT-Q6H PRN 02/25/24 02/25/24 Sulfate Hfa] Fludrocortisone [Florinef] 0.1 mg PO DAILY 02/25/24 02/25/24 Labetalol HCl 200 mg PO TID 02/25/24 02/25/24 NIFEdipine [Adalat CC] 90 mg PO DAILY 02/25/24 02/25/24 Tiotropium Br/Olodaterol HCl 2 puff INHALATION RT-DAILY 02/25/24 02/25/24 [Stiolto Respimat Inhaler (60)] Previous Rx's Medication Instructions Recorded Levofloxacin [Levaquin] 750 mg PO DAILY 1 Days #5 tab 02/28/24 predniSONE [Deltasone] 40 mg PO DAILY #10 tab 02/28/24 Allergies Allergy/AdvReac Type Severity Reaction Status Date / Time dexamethasone Allergy Chest Pain Verified 02/25/24 18:57 Review of Systems ROS Statement: Those systems with pertinent positive or pertinent negative responses have been documented in the HPI. ROS Other: All systems not noted in ROS Statement are negative. Past Medical History Past Medical History: Cancer, Diabetes Mellitus, GERD/Reflux, Hyperlipidemia, Hypertension, Myocardial Infarction ([place]) Additional Past Medical History / Comment(s): AAA - pt states [facility] Last Myocardial Infarction Date:: 05/2014 History of Any Multi-Drug Resistant Organisms: None Reported Past Surgical History: Heart Catheterization With Stent, Hernia Repair, Tonsillectomy Additional Past Surgical History / Comment(s): kidney stent nasal polys removed Past Anesthesia/Blood Transfusion Reactions: No Reported Reaction Date of Last Stent Placement:: 05/16/2014 Past Psychological History: No Psychological Hx Reported Smoking Status: Current every day smoker Past Alcohol Use History: Rare Past Drug Use History: None Reported - Past Family History Sister(s) Family Medical History: Hyperlipidemia, Myocardial Infarction ([place]) Additional Family Medical History / Comment(s): Mutiple stents - IA at age 66 and at that time Mother History Unknown: Yes Father Additional Family Medical History / Comment(s): Rheumatic fever/murmur, enlarged heart and of this at the age of 67yrs. General Exam Limitations: no limitations General appearance: alert, in no apparent distress Head exam: Present: atraumatic, normocephalic, normal inspection Eye exam: Present: normal appearance, PERRL, EOMI. Absent: scleral icterus, conjunctival injection, periorbital swelling ENT exam: Present: normal exam, mucous membranes moist Neck exam: Present: normal inspection. Absent: tenderness, meningismus, lymphadenopathy Respiratory exam: Present: rales, decreased breath sounds. Absent: respiratory distress, wheezes, rhonchi, stridor Cardiovascular Exam: Present: regular rate, normal rhythm, normal heart sounds. Absent: systolic murmur, diastolic murmur, rubs, gallop, clicks GI/Abdominal exam: Present: soft, normal bowel sounds. Absent: distended, tenderness, guarding, rebound, rigid Extremities exam: Present: normal inspection, full ROM, normal capillary refill. Absent: tenderness, pedal edema, joint swelling, calf tenderness Back exam: Present: normal inspection Neurological exam: Present: alert, oriented X3, CN II-XII intact Psychiatric exam: Present: normal affect, normal mood Skin exam: Present: warm, dry, intact, normal color. Absent: rash Course Vital Signs 02/25/24 02/25/24 02/25/24 15:16 16:28 16:30 Temperature 98.5 F Pulse Rate 68 68 Pulse Rate [ Lead Principal Technical Architect ] Respiratory 18 24 Rate Blood Pressure 110/61 137/63 Blood Pressure [Left Arm] O2 Sat by Pulse 100 99 92 L Oximetry 02/25/24 02/25/24 02/25/24 16:53 17:15 17:37 Temperature Pulse Rate 70 70 Pulse Rate [ Lead Principal Technical Architect ] Respiratory 24 Rate Blood Pressure 122/42 Blood Pressure [Left Arm] O2 Sat by Pulse 93 L 94 L Oximetry 02/25/24 02/25/24 02/25/24 17:48 18:00 18:37 Temperature Pulse Rate 72 72 Pulse Rate [ Lead Principal Technical Architect ] Respiratory 22 Rate Blood Pressure 134/47 Blood Pressure [Left Arm] O2 Sat by Pulse 88 L 91 L Oximetry 02/25/24 02/25/24 02/25/24 20:00 20:30 21:00 Temperature 98.5 F 98.7 F Pulse Rate 80 80 Pulse Rate [ Lead Principal Technical Architect ] Respiratory 20 20 20 Rate Blood Pressure 142/53 158/56 Blood Pressure [Left Arm] O2 Sat by Pulse 91 L 89 L Oximetry 02/25/24 02/25/24 02/25/24 21:31 21:39 22:00 Temperature Pulse Rate 80 82 78 Pulse Rate [ Lead Principal Technical Architect ] Respiratory 20 Rate Blood Pressure 137/44 Blood Pressure [Left Arm] O2 Sat by Pulse 91 L Oximetry 02/25/24 02/26/24 02/26/24 23:00 00:00 01:00 Temperature Pulse Rate 84 96 76 Pulse Rate [ Lead Principal Technical Architect ] Respiratory 20 22 20 Rate Blood Pressure 135/58 Blood Pressure [Left Arm] O2 Sat by Pulse 93 L 90 L 94 L Oximetry 02/26/24 02/26/24 02/26/24 03:00 05:00 07:00 Temperature Pulse Rate 90 75 80 Pulse Rate [ Lead Principal Technical Architect ] Respiratory 20 20 20 Rate Blood Pressure 132/52 138/61 149/56 Blood Pressure [Left Arm] O2 Sat by Pulse 91 L 92 L 96 Oximetry 02/26/24 02/26/24 02/26/24 08:00 08:02 08:03 Temperature 98.8 F Pulse Rate 66 Pulse Rate [ 79 Lead Principal Technical Architect ] Respiratory 22 Rate Blood Pressure Blood Pressure 149/56 [Left Arm] O2 Sat by Pulse 94 L 98 Oximetry 02/26/24 02/26/24 02/26/24 08:12 08:23 08:32 Temperature Pulse Rate 68 68 70 Pulse Rate [ Lead Principal Technical Architect ] Respiratory Rate Blood Pressure Blood Pressure [Left Arm] O2 Sat by Pulse Oximetry 02/26/24 02/26/24 02/26/24 12:00 12:28 12:31 Temperature Pulse Rate 65 Pulse Rate [ 60 Lead Principal Technical Architect ] Respiratory 18 Rate Blood Pressure Blood Pressure 141/47 [Left Arm] O2 Sat by Pulse 97 95 Oximetry 02/26/24 02/26/24 02/26/24 12:37 14:00 16:02 Temperature Pulse Rate 68 67 Pulse Rate [ Lead Principal Technical Architect ] Respiratory 18 Rate Blood Pressure Blood Pressure [Left Arm] O2 Sat by Pulse Oximetry 02/26/24 16:11 Temperature Pulse Rate 66 Pulse Rate [ Lead Principal Technical Architect ] Respiratory Rate Blood Pressure Blood Pressure [Left Arm] O2 Sat by Pulse Oximetry Medical Decision Making - Medical Decision Making Was pt. sent in by a medical professional or institution (, PA, [employer] MACHINIST, urgent care, hospital, or prison...) When possible be specific @ -Patient sent in from urgent care Did you speak to anyone other than the patient for history (EMS, parent, family, police, friend...)? What history was obtained from this source @ -I spoke with significant other for history Did you review nursing and triage notes (agree or disagree)? Why? @ -I reviewed and agree with nursing and triage notes Were old charts reviewed (outside hosp., previous admission, EMS record, old EKG, old radiological studies, urgent care reports/EKG's, prison records)? Report findings @ -No old charts were reviewed Differential Diagnosis (chest pain, altered mental status, abdominal pain women, abdominal pain men, vaginal bleeding, weakness, fever, dyspnea, syncope, headache, dizziness, GI bleed, back pain, seizure, CVA, palpatations, mental health, musculoskeletal)? @ -Differential Dyspnea: Coronary syndrome, arrhythmia, tamponade, asthma, COPD, pulmonary embolism, pneumonia, pneumothorax, pulmonary effusion, anaphylaxis, diabetic ketoacidosis, flailed chest, pulmonary contusion, diaphragmatic rupture, anemia, neuromuscu lar, this is not meant to be an all-inclusive list. EKG interpreted by me (3pts min.). @ -Yes and demonstrates sinus rhythm with a rate of 66. Parable 198. QRS 108. QTc of 427. No acute ST segment elevations. Q-wave in lead III X-rays interpreted by me (1pt min.). @ -Yes and is concerning for pneumonia CT interpreted by me (1pt min.). @ -None done U/S interpreted by me (1pt. min.). @ -None done What testing was considered but not performed or refused? (CT, X-rays, U/S, labs)? Why? @ -None What meds were considered but not given or refused? Why? @ -None Did you discuss the management of the patient with other professionals (professionals i.e. , PA, [employer]IST, lab, RT, psych nurse, transition social worker, ward supervisor, teacher, mechanical engineering officer, rn case manager)? Give summary @ -Spoke with Dr. Ramirez who will admit the patient Was smoking cessation discussed for >3mins.? @ -No Was critical care preformed (if so, how long)? @ -Yes, 35 minutes for management of hypoxia due to pneumonia Were there social determinants of health that impacted care today? How? (Homelessness, low income, unemployed, alcoholism, drug addiction, transportation, low edu. Level, literacy, decrease access to med. care, shelter, rehab)? @ -No Was there de-escalation of care discussed even if they declined (Discuss DNR or withdrawal of care, Hospice)? DNR status @ -No What co-morbidities impacted this encounter? (DM, HTN, Smoking, COPD, CAD, Cancer, CVA, ARF, Chemo, Hep., AIDS, mental health diagnosis, sleep apnea, mor bid obesity)? @ -COPD Was patient admitted / discharged? Hospital course, mention meds given and [place], prescriptions, significant lab abnormalities, going to OR and other pertinent info. @ -Upon arrival patient placed into room 27. Thorough history and physical exam was performed. Patient does have conversational dyspnea. He is on a nonrebreather. Patient is changed to 6 L. IV is established laboratory studies are conducted. Chest x-ray was performed which demonstrates pneumonia. Patient was given a breathing treatment. Antibiotics are initiated. He will be admitted to Dr. Ramirez Undiagnosed new problem with uncertain prognosis? @ -No Drug Therapy requiring intensive monitoring for toxicity (Heparin, Nitro, Insulin, Cardizem)? @ -No Were any procedures done? @ -No Diagnosis/symptom? @ -Acute hypoxic respiratory failure, acute community-acquired pneumonia, COPD exacerbation Acute, or Chronic, or Acute on Chronic? @ -Acute Uncomplicated (without systemic symptoms) or Complicated (systemic symptoms)? @ -Complicated Side effects of treatment? @ -No Exacerbation, Progression, or Severe Exacerbation? @ -Yes Poses a threat to life or bodily function? How? (Chest pain, [place], [place], pneumonia, PE, COPD, DKA, ARF, appy, cholecystitis, CVA, Diverticulitis, Homicidal, Suicidal, threat to staff... and all critical care pts) @ -Yes as patient is hypoxic - Lab Data Result diagrams: 02/26/24 06:25 02/27/24 08:30 Lab Results 02/25/24 02/25/24 02/25/24 Range/Units 16:00 16:00 16:00 WBC 11.9 H (3.8-10.6) k/uL RBC 5.07 (4.30-5.90) m/uL Hgb 15.2 (13.0-17.5) gm/dL Hct 46.5 (39.0-53.0) % MCV 91.7 (80.0-100.0) fL MCH 30.0 (25.0-35.0) pg MCHC 32.8 (31.0-37.0) g/dL RDW 12.9 (11.5-15.5) % Plt Count 143 L (150-450) k/uL MPV 9.4 Neutrophils % 84 % Lymphocytes % 6 % Monocytes % 7 % Eosinophils % 1 % Basophils % 0 % Neutrophils # 10.0 H (1.3-7.7) k/uL Lymphocytes # 0.7 L (1.0-4.8) k/uL Monocytes # 0.8 (0-1.0) k/uL Eosinophils # 0.1 (0-0.7) k/uL Basophils # 0.0 (0-0.2) k/uL PT 11.4 (10.0-12.5) sec INR 1.0 (<1.2) APTT 30.3 H (22.0-30.0) sec Sodium 137 (137-145) mmol/L Potassium 5.2 H (3.5-5.1) mmol/L Chloride 105 (98-107) mmol/L Carbon Dioxide 25 (22-30) mmol/L Anion Gap 7 mmol/L BUN 32 H (9-20) mg/dL Creatinine 1.34 H (0.66-1.25) mg/dL Est GFR (CKD-EPI)AfAm 62 (>60 ml/min/1.73 sqM) Est GFR (CKD-EPI)NonAf 54 (>60 ml/min/1.73 sqM) Glucose 157 H (74-99) mg/dL Plasma Lactic Acid Gadiel (0.7-2.0) mmol/L Calcium 8.7 (8.4-10.2) mg/dL Total Bilirubin 0.7 (0.2-1.3) mg/dL AST 27 (17-59) U/L ALT 19 (4-49) U/L Alkaline Phosphatase 106 (38-126) U/L Troponin I (0.000-0.034) ng/mL NT-Pro-B Natriuret Pep 980 pg/mL Total Protein 6.8 (6.3-8.2) g/dL Albumin 4.1 (3.5-5.0) g/dL Influenza Type A (PCR) (Not Detectd) Influenza Type B (PCR) (Not Detectd) RSV (PCR) (Not Detectd) SARS-CoV-2 (PCR) (Not Detectd) 02/25/24 02/25/24 02/25/24 Range/Units 16:00 16:00 16:00 WBC (3.8-10.6) k/uL RBC (4.30-5.90) m/uL Hgb (13.0-17.5) gm/dL Hct (39.0-53.0) % MCV (80.0-100.0) fL MCH (25.0-35.0) pg MCHC (31.0-37.0) g/dL RDW (11.5-15.5) % Plt Count (150-450) k/uL MPV Neutrophils % % Lymphocytes % % Monocytes % % Eosinophils % % Basophils % % Neutrophils # (1.3-7.7) k/uL Lymphocytes # (1.0-4.8) k/uL Monocytes # (0-1.0) k/uL Eosinophils # (0-0.7) k/uL Basophils # (0-0.2) k/uL PT (10.0-12.5) sec INR (<1.2) APTT (22.0-30.0) sec Sodium (137-145) mmol/L Potassium (3.5-5.1) mmol/L Chloride (98-107) mmol/L Carbon Dioxide (22-30) mmol/L Anion Gap mmol/L BUN (9-20) mg/dL Creatinine (0.66-1.25) mg/dL Est GFR (CKD-EPI)AfAm (>60 ml/min/1.73 sqM) Est GFR (CKD-EPI)NonAf (>60 ml/min/1.73 sqM) Glucose (74-99) mg/dL Plasma Lactic Acid Gadiel 1.1 (0.7-2.0) mmol/L Calcium (8.4-10.2) mg/dL Total Bilirubin (0.2-1.3) mg/dL AST (17-59) U/L ALT (4-49) U/L Alkaline Phosphatase (38-126) U/L Troponin I <0.012 (0.000-0.034) ng/mL NT-Pro-B Natriuret Pep pg/mL Total Protein (6.3-8.2) g/dL Albumin (3.5-5.0) g/dL Influenza Type A (PCR) Not Detected (Not Detectd) Influenza Type B (PCR) Not Detected (Not Detectd) RSV (PCR) Not Detected (Not Detectd) SARS-CoV-2 (PCR) Not Detected (Not Detectd) Disposition Clinical Impression: Hypoxia, Pneumonia, COPD (chronic obstructive pulmonary disease) Disposition: ADMITTED IP TO THIS HOSP Condition: Good Is patient prescribed a controlled substance at d/c from ED?: No Time of Disposition: 18:35 Decision to Admit Reason: Admit from EC Decision Date: 02/25/24 Decision Time: 18:35
[2024-02-25] MEDS ORDERED: PNEUMONIA PROTOCOL UTILIZED 1 EACH MISC PO PRN (18:35)
[2024-02-25] MEDS: NICOTINE 21MG/24HR PATCH TRANSDERM STA (20:09)
[2024-02-25] MEDS: AZITHROMYCIN 500 MG in SODIUM CHLORIDE 0.9% 250 ML IVPB STA (20:31)
[2024-02-25] MEDS: IPRATROPIUM-ALBUTEROL 3 ML NEB INHALATION SCH (21:31)
[2024-02-25] MEDS: ATORVASTATIN 80 MG TAB PO SCH (22:09)
[2024-02-25] MEDS: LABETALOL 200 MG TAB PO SCH (22:09)
--- NOTE | 2024-02-26 02:37 | P.HPIM ---
History of Present Illness H&P Date: 02/25/24 Patient is a 68-year-old male with a PMH of COPD, and hyperlipidemia who presents to the emergency room with complaints of shortness of breath and cough. Patient notes he has had URI-like symptoms over the past 4 days along with his and kids. He has been using his inhalers without significant relief. Notes a nonproductive cough without fever, chills, or chest pain. He was seen at an urgent care earlier today due to gradually worsening shortness of breath where his SpO2 was 72% and he was subsequently sent to the emergency room. Reports feeling somewhat better at the time of interview. Chest x-ray in the emergency room revealed mild scattered bilateral lung infiltrates concerning for atypical pneumonia with an EKG showing sinus rhythm at [address]/T wave changes noted as reviewed by me. Laboratory evaluation was remarkable for leukocytosis of 11.9, platelet count 143, potassium 5.2, BUN 32, creatinine 1.34, glucose 157, troponin less than 0.012, and proBNP 980. ED documentation reviewed and case discussed with ED provider. Review of systems: Pertinent positives and negatives as discussed in HPI, a complete review of systems was performed and all other systems are negative. Physical examination: Vital signs reviewed General: non toxic, no distress, appears at stated age, normal weight Derm: no unusual rashes/lesions, warm Head: atraumatic, normocephalic, symmetric Eyes: EOMI, no lid lag, anicteric sclera, pupils equal round reactive to light ENT: Nose and ears atraumatic Neck: No cervical lymphadenopathy, trachea midline, supple Mouth: no lip lesion, mucus membranes moist Cardiovascular: S1S2 reg, no murmur, positive dorsalis pedis pulse bilateral, no edema Lungs: Somewhat diminished breath sounds bilaterally with scattered rhonchi, no accessory muscle use Abdominal: soft, nontender to palpation, no guarding Ext: muscle strength 5 out of 5 in all 4 extremities grossly, no gross muscle atrophy, no contractures, Neuro: CN II-XI grossly intact, no gross focal neuro deficits Psych: Alert, oriented, appropriate affect Assessment: Acute hypoxic respiratory failure, likely due to community-acquired pneumonia and acute COPD exacerbation Acute kidney injury Hyperkalemia, suspect due to GENE Thrombocytopenia, at baseline Chronic conditions: Hyperlipidemia Imaging: Chest x-ray in the emergency room revealed mild scattered bilateral lung infi ltrates concerning for atypical pneumonia with an EKG showing sinus rhythm at [address]/T wave changes noted as reviewed by me. Data Review: Laboratory evaluation was remarkable for leukocytosis of 11.9, platelet count 143, potassium 5.2, BUN 32, creatinine 1.34, glucose 157, troponin less than 0.012, and proBNP 980. Plan: Continue with DuoNebs [id number] and as needed Continue azithromycin and ceftriaxone Continue Solu-Medrol 40 mg every 8 hourly Cardiac monitoring Pulmonary consulted Follow-up Legionella and sputum cultures Resume home medications Monitor BMP and CBC Continue with IV fluid normal saline 75 cc/h DVT prophylaxis: Lovenox subcu The patient is admitted with an anticipated greater than 2 midnight stay for evaluation of pneumonia CODE STATUS: Full Code Discussed with: Patient Anticipated discharge place: Home Past Medical History Past Medical History: Cancer, Diabetes Mellitus, GERD/Reflux, Hyperlipidemia, Hypertension, [place] Infarction ([place]) Additional Past Medical History / Comment(s): AAA - pt states 4.7cm last checked at the [place] Last Myocardial Infarction Date:: 05/2014 History of Any Multi-Drug Resistant Organisms: None Reported Past Surgical History: Heart Catheterization With Stent, Hernia Repair, Tonsillectomy Additional Past Surgical History / Comment(s): kidney stent nasal polys removed Past Anesthesia/Blood Transfusion Reactions: No Reported Reaction Date of Last Stent Placement:: 05/16/2014 Past Psychological History: No Psychological Hx Reported Smoking Status: Current every day smoker Past Alcohol Use History: Rare Past Drug Use History: None Reported - Past Family History Sister(s) Family Medical History: Hyperlipidemia, Myocardial Infarction ([place]) Additional Family Medical History / Comment(s): Mutiple stents - [place] at age 66 and at that time Mother History Unknown: Yes Father Additional Family Medical History / Comment(s): Rheumatic fever/murmur, enlarged heart and of this at the age of 67yrs. Medications and Allergies Home Medications Medication Instructions Recorded Confirmed Type Atorvastatin [Lipitor] 80 mg PO HS 11/25/20 02/25/24 History Clopidogrel [Plavix] 75 mg PO DAILY 11/25/20 02/25/24 History Vardenafil HCl [Levitra] 10 mg PO DAILY PRN MDD 4 08/13/21 02/25/24 History DOSES/MONTH Albuterol Sulfate [Albuterol 1 puff PO RT-Q6H PRN 02/25/24 02/25/24 History Sulfate Hfa] Fludrocortisone [Florinef] 0.1 mg PO DAILY 02/25/24 02/25/24 History Labetalol HCl 200 mg PO TID 02/25/24 02/25/24 History NIFEdipine [Adalat CC] 90 mg PO DAILY 02/25/24 02/25/24 History Tiotropium Br/Olodaterol HCl 2 puff INHALATION RT-DAILY 02/25/24 02/25/24 History [Stiolto Respimat Inhaler (60)] Allergies Allergy/AdvReac Type Severity Reaction Status Date / Time dexamethasone Allergy Chest Pain Verified 02/25/24 18:57 Physical Exam Vitals: Vital Signs Temp Pulse Resp BP Pulse Ox 02/25/24 21:39 82 02/25/24 21:31 80 02/25/24 20:00 98.5 F 80 20 142/53 91 L 02/25/24 18:37 72 22 134/47 91 L 02/25/24 18:00 88 L 02/25/24 17:48 72 02/25/24 17:37 70 02/25/24 17:15 70 24 122/42 94 L 02/25/24 16:53 93 L 02/25/24 16:30 92 L 02/25/24 16:28 68 24 137/63 99 02/25/24 15:16 98.5 F 68 18 110/61 100 Intake and Output 02/25/24 02/25/24 02/26/24 14:59 22:59 06:59 Other: Weight 79.379 kg Results CBC & Chem 7: 02/25/24 16:00 02/25/24 16:00 Labs: Abnormal Lab Results - Last 24 Hours (Table) 02/25/24 02/25/24 02/25/24 Range/Units 16:00 16:00 16:00 WBC 11.9 H (3.8-10.6) k/uL Plt Count 143 L (150-450) k/uL Neutrophils # 10.0 H (1.3-7.7) k/uL Lymphocytes # 0.7 L (1.0-4.8) k/uL APTT 30.3 H (22.0-30.0) sec Potassium 5.2 H (3.5-5.1) mmol/L BUN 32 H (9-20) mg/dL Creatinine 1.34 H (0.66-1.25) mg/dL Glucose 157 H (74-99) mg/dL
[2024-02-26 06:47] LABS: HCT 42.4 % (39.0-53.0); HGB 13.4 gm/dL (13.0-17.5); MCH 30.1 pg (25.0-35.0); MCHC 31.5 g/dL (31.0-37.0); MCV 95.5 fL (80.0-100.0); Mean Platelet Volume 8.7; Platelet Count 162 k/uL (150-450); RBC 4.44 m/uL (4.30-5.90); RDW 12.6 % (11.5-15.5); WBC 9.8 k/uL (3.8-10.6)
[2024-02-26 07:03] LABS: African American GFR (CKD) 57 (>60 ml/min/1.73 sqM); Anion Gap 4 mmol/L; Blood Urea Nitrogen 41 mg/dL (9-20); Calcium 8.3 mg/dL (8.4-10.2); Carbon Dioxide 26 mmol/L (22-30); Chloride 106 mmol/L (98-107); Glucose 171 mg/dL (74-99); Non-African American GFR(CKD) 50 (>60 ml/min/1.73 sqM); Potassium 4.5 mmol/L (3.5-5.1); Sodium 136 mmol/L (137-145)
[2024-02-26] MEDS ORDERED: IPRATROPIUM 0.5 MG/2.5 ML NEBU INHALATION SCH (08:00)
[2024-02-26] MEDS: FORMOTEROL FUMARATE 20 MCG/2 ML NEBU INHALATION SCH (08:01)
[2024-02-26] MEDS: FLUDROCORTISONE 0.1 MG TAB PO SCH (09:11)
[2024-02-26] MEDS: NIFEdipine XL 90 MG TAB.ER.24 PO SCH (09:11)
[2024-02-26] MEDS: methylPREDNISolone SOD SUCCI 40 MG/ML 1 ML VIAL IV SCH (09:12)
[2024-02-26] MEDS: AZITHROMYCIN 500 MG TAB PO SCH (09:12)
[2024-02-26] MEDS: CLOPIDOGREL 75 MG TAB PO SCH (09:12)
[2024-02-26] MEDS: ENOXAPARIN 40 MG/0.4 ML SYRINGE SQ SCH (09:13)
[2024-02-26] MEDS: SODIUM CHLORIDE 0.9% 1,000 ML IV SCH (09:22)
[2024-02-26 12:10] LABS: Glucose,Whole Blood 193 mg/dL (70-110)
[2024-02-26 12:16] VITALS: RESP 18
--- NOTE | 2024-02-26 12:39 | P.CNPUL ---
History of Present Illness Consult date: 02/26/24 Requesting physician: Zachery Vang Reason for consult: hypoxemia, pneumonia, abnormal CXR/CT Chief complaint: Shortness of breath, cough, congestion History of present illness: This is a 68-year-old male patient with a known history of coronary artery disease with previous stent placements, cerebrovascular accident in September 2022, Watchman procedure, hyperlipidemia, abdominal aortic aneurysm status post stenting, chronic obstructive pulmonary disease with a ongoing 50+ year smoking history. He presented here to the emergency room yesterday with complaints of increasing shortness of breath, cough congestion and fatigue and weakness. X- ray revealed mild scattered bilateral lung infiltrates. White count 9.8. Hemoglobin 13.5. Platelets 162. Sodium 136. Potassium 4.5. Bicarb 26. BUN 41. Creatinine 1.43. Glucose 171. Viral screen was negative. Legionella screen negative. He is seen today in consultation in the emergency department. He is currently resting on stretcher. Awake and alert in no acute distress. He does have a loose productive cough of yellow sputum. He is maintaining O2 saturations in the 90s on 6 L high flow nasal cannula. He has been afebrile. H emodynamically stable. Review of Systems REVIEW OF SYSTEMS: CONSTITUTIONAL: Positive for generalized weakness, fatigue. Denies any recent significant weight loss or weight gain. EYES: Denies change in vision. EARS, NOSE, MOUTH, THROAT: Denies headaches, denies sore throat. CARDIOVASCULAR: Denies chest pain, palpitations or syncopal episodes. RESPIRATORY: Positive for shortness of breath, cough, congestion no hemoptysis. GASTROINTESTINAL: Denies change in appetite, denies abdominal pain GENITOURINARY: Denies hematuria, denies infections. MUSKULOSKELETAL: Denies pain, denies swelling. INTEGUMENTARY: Denies rash, denies eczema. NEUROLOGICAL: Denies recent memory loss, no recent seizure activity. PSYCHIATRIC: Denies anxiety, denies depression. HEMATOLOGIC/LYMPHATIC: Denies anemia, denies enlarged lymph nodes. Past Medical History Past Medical History: Cancer, Diabetes Mellitus, GERD/Reflux, Hyperlipidemia, Hypertension, Myocardial Infarction ([place]) Additional Past Medical History / Comment(s): AAA repair, kidney CA, lung CA, brain bleed Last Myocardial Infarction Date:: 05/2014 History of Any Multi-Drug Resistant Organisms: None Reported Past Surgical History: Heart Catheterization With Stent, Hernia Repair, Tonsill ectomy Additional Past Surgical History / Comment(s): kidney stent nasal polys removed Past Anesthesia/Blood Transfusion Reactions: No Reported Reaction Date of Last Stent Placement:: 05/16/2014 Past Psychological History: No Psychological Hx Reported Additional Psychological History / Comment(s): Pt resides with his S.O. He is independent. Smoking Status: Current every day smoker Past Alcohol Use History: Rare Additional Past Alcohol Use History / Comment(s): PT started smoking in 1966 and is a ppd smoker. Past Drug Use History: None Reported - Past Family History Sister(s) Family Medical History: Hyperlipidemia, Myocardial Infarction ([place]) Additional Family Medical History / Comment(s): Mutiple stents - [place] at age 64 and at that time Mother History Unknown: Yes Father Additional Family Medical History / Comment(s): Rheumatic fever/murmur, enlarged heart and of this at the age of 67yrs. Medications and Allergies Home Medications Medication Instructions Recorded Confirmed Type Atorvastatin [Lipitor] 80 mg PO HS 11/25/20 02/25/24 History Clopidogrel [Plavix] 75 mg PO DAILY 11/25/20 02/25/24 History Vardenafil HCl [Levitra] 10 mg PO DAILY PRN MDD 4 08/13/21 02/25/24 History DOSES/MONTH Albuterol Sulfate [Albuterol 1 puff PO RT-Q6H PRN 02/25/24 02/25/24 History Sulfate Hfa] Fludrocortisone [Florinef] 0.1 mg PO DAILY 02/25/24 02/25/24 History Labetalol HCl 200 mg PO TID 02/25/24 02/25/24 History NIFEdipine [Adalat CC] 90 mg PO DAILY 02/25/24 02/25/24 History Tiotropium Br/Olodaterol HCl 2 puff INHALATION RT-DAILY 02/25/24 02/25/24 History [Stiolto Respimat Inhaler (60)] Allergies Allergy/AdvReac Type Severity Reaction Status Date / Time dexamethasone Allergy Chest Pain Verified 02/25/24 18:57 Physical Exam Vitals: Vital Signs Temp Pulse Pulse Resp BP BP Pulse Ox 02/26/24 12:00 60 18 141/47 97 02/26/24 08:32 70 02/26/24 08:23 68 02/26/24 08:12 68 02/26/24 08:03 98 02/26/24 08:02 66 02/26/24 08:00 98.8 F 79 22 149/56 94 L 02/26/24 07:00 80 20 149/56 96 02/26/24 05:00 75 20 138/61 92 L 02/26/24 03:00 90 20 132/52 91 L 02/26/24 01:00 76 20 94 L 02/26/24 00:00 96 22 90 L 02/25/24 23:00 84 20 135/58 93 L 02/25/24 22:00 78 20 137/44 91 L 02/25/24 21:39 82 02/25/24 21:31 80 02/25/24 21:00 98.7 F 80 20 158/56 89 L 02/25/24 20:30 20 02/25/24 20:00 98.5 F 80 20 142/53 91 L 02/25/24 18:37 72 22 134/47 91 L 02/25/24 18:00 88 L 02/25/24 17:48 72 02/25/24 17:37 70 02/25/24 17:15 70 24 122/42 94 L 02/25/24 16:53 93 L 02/25/24 16:30 92 L 02/25/24 16:28 68 24 137/63 99 02/25/24 15:16 98.5 F 68 18 110/61 100 Intake and Output 02/25/24 02/26/24 02/26/24 22:59 06:59 14:59 Intake Total 240 Output Total 375 Balance -135 Intake: Oral 240 Output: Urine 375 Other: Voiding Method Urinal Weight 79.379 kg 79.379 kg GENERAL EXAM: Alert, disheveled, 68-year-old male patient, on 6 L high flow nasal cannula, fairly comfortable in no apparent distress. HEAD: Normocephalic. EYES: Normal reaction of pupils, equal size. NOSE: Clear with pink turbinates. THROAT: No erythema or exudates. NECK: No masses, no JVD. CHEST: No chest wall deformity. LUNGS: Equal air entry with bilateral scattered rhonchi. Diminished CVS: S1 and S2 normal with no audible murmur, regular rhythm. ABDOMEN: No hepatosplenomegaly, normal bowel sounds, no guarding or rigidity. SPINE: No scoliosis or deformity SKIN: No rashes CENTRAL NERVOUS SYSTEM: No focal deficits, tone is normal in all 4 extremities. EXTREMITIES: There is no peripheral edema. No clubbing, no cyanosis. Peripheral pulses are intact. Results - Laboratory Findings CBC and BMP: 02/26/24 06:25 02/26/24 06:25 PT/INR, D-dimer PT 11.4 sec (10.0-12.5) 02/25/24 16:00 INR 1.0 (<1.2) 02/25/24 16:00 Abnormal lab findings: Abnormal Labs 02/25/24 02/25/24 02/25/24 16:00 16:00 16:00 WBC 11.9 H Plt Count 143 L Neutrophils # 10.0 H Lymphocytes # 0.7 L APTT 30.3 H Sodium Potassium 5.2 H BUN 32 H Creatinine 1.34 H Glucose 157 H POC Glucose (mg/dL) Calcium 02/26/24 02/26/24 06:25 12:08 WBC Plt Count Neutrophils # Lymphocytes # APTT Sodium 136 L Potassium BUN 41 H Creatinine 1.43 H Glucose 171 H POC Glucose (mg/dL) 193 H Calcium 8.3 L - Diagnostic Findings Chest x-ray: image reviewed Assessment and Plan Assessment: Acute hypoxemic respiratory failure secondary to acute community-acquired bilateral pneumonia Acute exacerbation of chronic obstructive pulmonary disease secondary to above Chronic and ongoing tobacco dependence of greater than 50 years Coronary artery disease with previous stent placement Abdominal aortic aneurysm with previous stent placement History of cerebral vascular accident History of Watchman procedure Hyperlipidemia Hypertension Plan: The patient was seen and evaluated Chest x-ray, labs and medications reviewed Titrate the FiO2 as tolerated Continue ceftriaxone and azithromycin Check a procalcitonin Continue bronchodilators and steroids Educated regarding the importance of smoking cessation NicoDerm patch will be offered We will continue to follow and make further recommendations based on his clinical status I have personally seen and examined the patient, performed the documentation and the assessment and plan as written. Number of minutes spent on the visit: 20.
[2024-02-26] MEDS ORDERED: DEXTROSE 50% SYRINGE 50 ML IVP PRN ×2 (13:07)
--- NOTE | 2024-02-26 13:10 | P.PN ---
Subjective Progress Note Date: 02/26/24 68-year-old male with a PMH of COPD, and hyperlipidemia who presents to the emergency room with complaints of shortness of breath and cough. Patient notes he has had URI-like symptoms over the past 4 days along with his and kids. He has been using his inhalers without significant relief. Notes a n onproductive cough without fever, chills, or chest pain. He was seen at an urgent care earlier today due to gradually worsening shortness of breath where his SpO2 was 72% and he was subsequently sent to the emergency room. Reports feeling somewhat better at the time of interview. Chest x-ray in the emergency room revealed mild scattered bilateral lung infiltrates concerning for atypical pneumonia with an EKG showing sinus rhythm at [address]/T wave changes noted as reviewed by me. Laboratory evaluation was remarkable for leukocytosis of 11.9, platelet count 143, potassium 5.2, BUN 32, creatinine 1.34, glucose 157, troponin less than 0.012, and proBNP 980. Patient was started on Rocephin/Azithromycin along with bronchodilators and admitted for further management. 02/25 Patient was seen and examined. He is on 6L NC. Reports improved breathing. Cough with clear/yellow sputum. CBC unremarkable. BMP Na 136, BUN 41, Cr 1.43, glu 171, Ca 8.3. General: no distress, appears at stated age Derm: warm, dry Head: atraumatic, normocephalic, symmetric Eyes: EOMI, no lid lag, anicteric sclera Mouth: no lip lesion, mucus membranes moist Cardiovascular: S1S2 tachy, no murmur Lungs: Expiratory wheezing bilateral, no rhonchi, no rales , no accessory muscle use Abdominal: soft, nontender to palpation, no guarding, no appreciable organomegaly Ext: no gross muscle atrophy, no edema, no contractures Neuro: no focal neuro deficits Psych: Alert, oriented, appropriate affect Based on my assessment of this patient, this patient meets a high complexity level of care. Acute hypoxic respiratory failure, likely due to community-acquired pneumonia and acute COPD exacerbation: Continue Rocephin 2g IV QD and Azithromycin 500 mg PO QD. DuoNeb QID scheduled. Symbicort 2 puff BID. SoluMedrol 40 mg IV TID. Telemetry monitoring. Pulmonary on board. Acute kidney injury: NS at 100 cc/hr. Smoker: Nicotine patch offered. History of CAD with stent: Lipitor 80 mg PO QHS. Plavix 75 mg PO QD. History of AAA: Outpatient follow up. Hypertension: Labetalol 200 mg PO TID. Nifedipine 90 mg PO QD. Diabetes mellitus: ISS. Accuchecks ACHS. Hypoglycemic precautions. Resolved: Hyperkalemia Chronic conditions: Hyperlipidemia CODE STATUS: FULL CODE DVT Prophylaxis: Lovenox SQ GI Prophylaxis: Protonix PO Designated medical POA if patient is not able to make medical decisions for themselves: I have reviewed the following integration consultant notes: Pulmonary note. I have reviewed the results of the following tests: CBC, BMP. I have ordered the following tests: I have discussed the care of this patient with the following independent historian: I have independently interpreted the following test below: I have discussed the management of this patient with the following physician: Objective - Vital Signs Vital signs: Vital Signs Temp 98.7 F 02/25/24 21:00 Pulse 70 02/26/24 08:32 Resp 20 02/26/24 07:00 BP 149/56 02/26/24 07:00 Pulse Ox 98 02/26/24 08:03 FiO2 Intake & Output 02/25/24 02/26/24 02/26/24 18:59 06:59 18:59 Weight 79.379 kg - Labs CBC & Chem 7: 02/26/24 06:25 02/26/24 06:25 Labs: Abnormal Lab Results - Last 24 Hours (Table) 02/25/24 02/25/24 02/25/24 Range/Units 16:00 16:00 16:00 WBC 11.9 H (3.8-10.6) k/uL Plt Count 143 L (150-450) k/uL Neutrophils # 10.0 H (1.3-7.7) k/uL Lymphocytes # 0.7 L (1.0-4.8) k/uL APTT 30.3 H (22.0-30.0) sec Sodium (137-145) mmol/L Potassium 5.2 H (3.5-5.1) mmol/L BUN 32 H (9-20) mg/dL Creatinine 1.34 H (0.66-1.25) mg/dL Glucose 157 H (74-99) mg/dL Calcium (8.4-10.2) mg/dL 02/26/24 Range/Units 06:25 WBC (3.8-10.6) k/uL Plt Count (150-450) k/uL Neutrophils # (1.3-7.7) k/uL Lymphocytes # (1.0-4.8) k/uL APTT (22.0-30.0) sec Sodium 136 L (137-145) mmol/L Potassium (3.5-5.1) mmol/L BUN 41 H (9-20) mg/dL Creatinine 1.43 H (0.66-1.25) mg/dL Glucose 171 H (74-99) mg/dL Calcium 8.3 L (8.4-10.2) mg/dL
--- NOTE | 2024-02-26 15:26 | XR ---
EXAMINATION TYPE: XR chest 1V portable DATE OF EXAM: 02/26/2024 COMPARISON: 02/25/2024 INDICATION: pneumonia TECHNIQUE: Single frontal view of the chest is obtained. FINDINGS: The heart size is normal. Electronic device at the level of the heart. The pulmonary vasculature is normal. Peripheral infiltrate right lung. IMPRESSION: 1. Correlate for right lung pneumonia. Follow up recommended.
[2024-02-26 16:39] LABS: Glucose,Whole Blood 206 mg/dL (70-110)
[2024-02-26] MEDS: INSULIN ASPART (NovoLOG) 100 UNIT/ML VIAL SQ SCH (17:05)
[2024-02-26 20:01] LABS: Glucose,Whole Blood 253 mg/dL (70-110)
[2024-02-26] MEDS: NICOTINE 21MG/24HR PATCH TRANSDERM STA (20:43)
[2024-02-26] MEDS: SYMBICORT 160-4.5 MCG INHALER INHALATION SCH (21:54)
[2024-02-27 06:13] LABS: Glucose,Whole Blood 206 mg/dL (70-110)
[2024-02-27] MEDS: PANTOPRAZOLE 40 MG TABLET PO SCH (06:25)
[2024-02-27 09:03] LABS: African American GFR (CKD) 82 (>60 ml/min/1.73 sqM); Anion Gap 2 mmol/L; Blood Urea Nitrogen 39 mg/dL (9-20); Calcium 8.3 mg/dL (8.4-10.2); Carbon Dioxide 26 mmol/L (22-30); Chloride 109 mmol/L (98-107); Glucose 266 mg/dL (74-99); Non-African American GFR(CKD) 71 (>60 ml/min/1.73 sqM); Potassium 4.6 mmol/L (3.5-5.1); Sodium 137 mmol/L (137-145)
--- NOTE | 2024-02-27 11:39 | P.PN ---
Subjective Progress Note Date: 02/27/24 Principal diagnosis: Acute community-acquired pneumonia This is a 68-year-old male patient with a known history of coronary artery disease with previous stent placements, cerebrovascular accident in September 2022, Watchman procedure, hyperlipidemia, abdominal aortic aneurysm status post stenting, chronic obstructive pulmonary disease with a ongoing 50+ year smoking history. He presented here to the emergency room yesterday with complaints of increasing shortness of breath, cough congestion and fatigue and weakness. X- ray revealed mild scattered bilateral lung infiltrates. White count 9.8. Hemoglobin 13.5. Platelets 162. Sodium 136. Potassium 4.5. Bicarb 26. BUN 41. Creatinine 1.43. Glucose 171. Viral screen was negative. Legionella screen negative. He is seen today in consultation in the emergency department. He is currently resting on stretcher. Awake and alert in no acute distress. He does have a loose productive cough of yellow sputum. He is maintaining O2 saturations in the 90s on 6 L high flow nasal cannula. He has been afebrile. Hemodynamically stable. Patient was evaluated today on 02/27/2024, patient is feeling better, nonetheless he continues to have relative hypoxemia with O2 saturation 95% on 3 L nasal cannula, hemodynamically stable, on physical examination he has diffuse rhonchi noted bilaterally, his procalcitonin level came back elevated at 0.57 consistent with bacterial pneumonia his renal function is improved compared to yesterday, patient is responding to hydration. And renal profile is improved creatinine is 1.07 down from 1.43 yesterday.Blood cultures are negative so far. Sputum cultures are pending, the Gram stain is showing many PMNs, however few gram- positive cocci and few gram-positive bacilli. Objective - Vital Signs Vital signs: Vital Signs Temp 98.3 F 02/26/24 20:00 Pulse 68 02/27/24 11:31 Resp 18 02/27/24 09:39 BP 136/58 02/27/24 08:22 Pulse Ox 95 02/27/24 08:24 FiO2 Intake & Output 02/26/24 02/27/24 02/27/24 18:59 06:59 18:59 Intake Total 420 540 240 Output Total 1050 1075 Balance -630 -535 240 Weight 79.379 kg Intake: Oral 420 540 240 Output: Urine 1050 1075 Other: Voiding Method Urinal Urinal Urinal - Exam GENERAL EXAM: Revealed 68-year-old white male pleasant in no distress, on 3 L nasal cannula HEAD: Normocephalic. EYES: Normal reaction of pupils, equal size. NOSE: Clear with pink turbinates. THROAT: No erythema or exudates. NECK: No masses, no JVD. CHEST: No chest wall deformity. LUNGS: Rhonchi noted bilaterally CVS: S1 and S2 normal with no audible murmur, regular rhythm. ABDOMEN: No hepatosplenomegaly, normal bowel sounds, no guarding or rigidity. SKIN: No rashes CENTRAL NERVOUS SYSTEM: Alert and oriented x 3 no gross focal deficit EXTREMITIES: No clubbing edema or cyanosis - Labs CBC & Chem 7: 02/26/24 06:25 02/27/24 08:30 Labs: Abnormal Lab Results - Last 24 Hours (Table) 02/26/24 02/26/24 02/26/24 Range/Units 06:25 12:08 16:38 Chloride (98-107) mmol/L BUN (9-20) mg/dL Glucose (74-99) mg/dL POC Glucose (mg/dL) 193 H 206 H (70-110) mg/dL Calcium (8.4-10.2) mg/dL Procalcitonin 0.57 H (0.02-0.09) ng/mL 02/26/24 02/27/24 02/27/24 Range/Units 19:59 06:09 08:30 Chloride 109 H (98-107) mmol/L BUN 39 H (9-20) mg/dL Glucose 266 H (74-99) mg/dL POC Glucose (mg/dL) 253 H 206 H (70-110) mg/dL Calcium 8.3 L (8.4-10.2) mg/dL Procalcitonin (0.02-0.09) ng/mL Microbiology - Last 24 Hours (Table) 02/25/24 19:00 Blood Culture - Preliminary Blood 02/25/24 18:45 Blood Culture - Preliminary Blood 02/25/24 20:00 Gram Stain - Preliminary Sputum Assessment and Plan Assessment: Impression: Acute hypoxemic respiratory failure secondary to acute community-acquired bilateral pneumonia, patient was noted to have abnormal chest x-ray and elevated procalcitonin level on admission Acute exacerbation of chronic obstructive pulmonary disease secondary to above Chronic and ongoing tobacco dependence of greater than 50 years Coronary artery disease with previous stent placement Abdominal aortic aneurysm with previous stent placement History of cerebral vascular accident History of Watchman procedure Hyperlipidemia Hypertension Recommendation: Continue antibiotics for community-acquired pneumonia Continue bronchodilators for acute exacerbation of COPD Made aware that procalcitonin level is elevated Continue oxygen and titrate accordingly Not quite ready for discharge planning although the patient feels he could go home. Will continue to follow Time with Patient: Less than 30
[2024-02-27 11:52] LABS: Glucose,Whole Blood 291 mg/dL (70-110)
--- NOTE | 2024-02-27 12:32 | P.PN ---
Subjective Progress Note Date: 02/27/24 68-year-old male with a PMH of COPD, and hyperlipidemia who presents to the emergency room with complaints of shortness of breath and cough. Patient notes he has had URI-like symptoms over the past 4 days along with his and kids. He has been using his inhalers without significant relief. Notes a n onproductive cough without fever, chills, or chest pain. He was seen at an urgent care earlier today due to gradually worsening shortness of breath where his SpO2 was 72% and he was subsequently sent to the emergency room. Reports feeling somewhat better at the time of interview. Chest x-ray in the emergency room revealed mild scattered bilateral lung infiltrates concerning for atypical pneumonia with an EKG showing sinus rhythm at [address]/T wave changes noted as reviewed by me. Laboratory evaluation was remarkable for leukocytosis of 11.9, platelet count 143, potassium 5.2, BUN 32, creatinine 1.34, glucose 157, troponin less than 0.012, and proBNP 980. Patient was started on Rocephin/Azithromycin along with bronchodilators and admitted for further management. Pulmonary consulted and following. 02/26 Patient was seen and examined. He is on 3L NC saturating 95%. Reports imp roved breathing. Cough with clear/yellow sputum. Procal 0.57. Maintained on Rocephin and Azithromycin (D3). CXR done yesterday shows persistent bilateral infiltrates. POC glucose 171-206 over the past 24H requiring 7 units of Novolog. BMP Cl 109, BUN 39, glu 266 Ca 8.3. General: no distress, appears at stated age Derm: warm, dry Head: atraumatic, normocephalic, symmetric Eyes: EOMI, no lid lag, anicteric sclera Mouth: no lip lesion, mucus membranes moist Cardiovascular: S1S2 tachy, no murmur Lungs: Expiratory wheezing bilateral, no rhonchi, no rales , no accessory muscle use Ext: no gross muscle atrophy, no edema, no contractures Neuro: no focal neuro deficits Psych: Alert, oriented, appropriate affect Based on my assessment of this patient, this patient meets a high complexity level of care. #Acute hypoxic respiratory failure, likely due to community-acquired pneumonia and acute COPD exacerbation: Continue Rocephin 2g IV QD and Azithromycin 500 mg PO QD. DuoNeb QID scheduled. Symbicort 2 puff BID. SoluMedrol 40 mg IV TID. Telemetry monitoring. Pulmonary on board. #Diabetes mellitus with hyperglycemia: A1c 6.2. Steroid induced. Increase ISS from low dose to medium dose. Accuchecks ACHS. Hypoglycemic precautions. #Acute kidney injury: NS at 100 cc/hr. #Smoker: Nicotine patch offered. #History of CAD with stent: Lipitor 80 mg PO QHS. Plavix 75 mg PO QD. #History of AAA: Outpatient follow up. #Hypertension: Labetalol 200 mg PO TID. Nifedipine 90 mg PO QD. #Resolved: Hyperkalemia Chronic conditions: Hyperlipidemia Patient with significant wheezing. Still on 3L. Continue management. Hopeful discharge in 1-2 days. CODE STATUS: FULL CODE DVT Prophylaxis: Lovenox SQ GI Prophylaxis: Protonix PO Designated medical POA if patient is not able to make medical decisions for themselves: I have reviewed the following corporate travel consultant notes: Pulmonary note. I have reviewed the results of the following tests: Procal. BMP. I have ordered the following tests: I have discussed the care of this patient with the following independent historian: I have independently interpreted the following test below: CXR I have discussed the management of this patient with the following physician: Objective - Vital Signs Vital signs: Vital Signs Temp 98.3 F 02/26/24 20:00 Pulse 63 02/27/24 08:22 Resp 18 02/27/24 08:24 BP 136/58 02/27/24 08:22 Pulse Ox 95 02/27/24 08:24 FiO2 Intake & Output 02/26/24 02/27/24 02/27/24 18:59 06:59 18:59 Intake Total 420 540 Output Total 1050 1075 Balance -630 -535 Weight 79.379 kg Intake: Oral 420 540 Output: Urine 1050 1075 Other: Voiding Method Urinal Urinal - Labs CBC & Chem 7: 02/26/24 06:25 02/27/24 08:30 Labs: Abnormal Lab Results - Last 24 Hours (Table) 02/26/24 02/26/24 02/26/24 Range/Units 06:25 12:08 16:38 POC Glucose (mg/dL) 193 H 206 H (70-110) mg/dL Procalcitonin 0.57 H (0.02-0.09) ng/mL 02/26/24 02/27/24 Range/Units 19:59 06:09 POC Glucose (mg/dL) 253 H 206 H (70-110) mg/dL Procalcitonin (0.02-0.09) ng/mL Microbiology - Last 24 Hours (Table) 02/25/24 19:00 Blood Culture - Preliminary Blood 02/25/24 18:45 Blood Culture - Preliminary Blood 02/25/24 20:00 Gram Stain - Preliminary Sputum
[2024-02-27 16:25] LABS: Glucose,Whole Blood 222 mg/dL (70-110)
[2024-02-27 20:00] LABS: Glucose,Whole Blood 183 mg/dL (70-110)
[2024-02-27] MEDS: NICOTINE 21MG/24HR PATCH TRANSDERM SCH (20:21)
[2024-02-28 06:11] LABS: Glucose,Whole Blood 269 mg/dL (70-110)
[2024-02-28 08:19] VITALS: TEMP 97.5
--- NOTE | 2024-02-28 11:25 | XR ---
EXAMINATION TYPE: XR chest 1V portable DATE OF EXAM: 02/28/2024 COMPARISON: 02/26/2024 INDICATION: Pneumonia TECHNIQUE: Single frontal view of the chest is obtained. FINDINGS: The heart size is normal. The pulmonary vasculature is normal. The lungs are clear. Previous right lung infiltrate has resolved. Electronic device overlies the left heart border. IMPRESSION: 1. No acute pulmonary process. 2. Resolution previous infiltrate
[2024-02-28 11:36] LABS: Glucose,Whole Blood 246 mg/dL (70-110)
--- NOTE | 2024-02-28 11:36 | P.PN ---
Subjective Progress Note Date: 02/28/24 Principal diagnosis: Acute community-acquired pneumonia This is a 68-year-old male patient with a known history of coronary artery disease with previous stent placements, cerebrovascular accident in September 2022, Watchman procedure, hyperlipidemia, abdominal aortic aneurysm status post stenting, chronic obstructive pulmonary disease with a ongoing 50+ year smoking history. He presented here to the emergency room yesterday with complaints of increasing shortness of breath, cough congestion and fatigue and weakness. X- ray revealed mild scattered bilateral lung infiltrates. White count 9.8. Hemoglobin 13.5. Platelets 162. Sodium 136. Potassium 4.5. Bicarb 26. BUN 41. Creatinine 1.43. Glucose 171. Viral screen was negative. Legionella screen negative. He is seen today in consultation in the emergency department. He is currently resting on stretcher. Awake and alert in no acute distress. He does have a loose productive cough of yellow sputum. He is maintaining O2 saturations in the 90s on 6 L high flow nasal cannula. He has been afebrile. Hemodynamically stable. Patient was evaluated today on 02/27/2024, patient is feeling better, nonetheless he continues to have relative hypoxemia with O2 saturation 95% on 3 L nasal cannula, hemodynamically stable, on physical examination he has diffuse rhonchi noted bilaterally, his procalcitonin level came back elevated at 0.57 consistent with bacterial pneumonia his renal function is improved compared to yesterday, patient is responding to hydration. And renal profile is improved creatinine is 1.07 down from 1.43 yesterday.Blood cultures are negative so far. Sputum cultures are pending, the Gram stain is showing many PMNs, however few gram- positive cocci and few gram-positive bacilli. Reevaluate today on 02/28/2024, patient continues to do fairly well, feeling much better today compared to the last couple of days. He is now on room air. Chest x-ray is showing significant improvement in his right lower lobe infiltrate, minimal infiltrate noted in the left lower lobe, patient is asking to be discharged home, and I am recommending that he goes home on Levaquin and on bronchodilators and should have follow-up with me on outpatient basis within the next few days. Objective - Vital Signs Vital signs: Vital Signs Temp 97.5 F L 02/28/24 08:17 Pulse 60 02/28/24 09:12 Resp 18 02/28/24 09:12 BP 152/66 02/28/24 08:17 Pulse Ox 93 L 02/28/24 08:44 FiO2 Intake & Output 02/27/24 02/28/24 02/28/24 18:59 06:59 18:59 Intake Total 780 540 Output Total 1300 1550 Balance -520 -1010 Intake: Oral 780 540 Output: Urine 1300 1550 Other: Voiding Method Urinal Urinal Urinal - Exam GENERAL EXAM: Revealed 68-year-old white male pleasant in no room air feels significantly better HEAD: Normocephalic. EYES: Normal reaction of pupils, equal size. NOSE: Clear with pink turbinates. THROAT: No erythema or exudates. NECK: No masses, no JVD. CHEST: No chest wall deformity. LUNGS: Clear bilaterally no rhonchi no wheezes CVS: S1 and S2 normal with no audible murmur, regular rhythm. ABDOMEN: No hepatosplenomegaly, normal bowel sounds, no guarding or rigidity. SKIN: No rashes CENTRAL NERVOUS SYSTEM: Alert and oriented x 3 no gross focal deficit EXTREMITIES: No clubbing edema or cyanosis - Labs CBC & Chem 7: 02/26/24 06:25 02/27/24 08:30 Labs: Abnormal Lab Results - Last 24 Hours (Table) 02/27/24 02/27/24 02/27/24 Range/Units 11:44 16:24 19:58 POC Glucose (mg/dL) 291 H 222 H 183 H (70-110) mg/dL 02/28/24 Range/Units 06:08 POC Glucose (mg/dL) 269 H (70-110) mg/dL Microbiology - Last 24 Hours (Table) 02/25/24 20:00 Gram Stain - Final Sputum Sputum Culture - Final Haemophilus influenzae Beta Hemolytic Strep Group G Escherichia coli 02/25/24 19:00 Blood Culture - Preliminary Blood 02/25/24 18:45 Blood Culture - Preliminary Blood Assessment and Plan Assessment: Impression: Acute hypoxemic respiratory failure secondary to acute community-acquired bilateral pneumonia, patient was noted to have abnormal chest x-ray and elevated procalcitonin level on admission Acute exacerbation of chronic obstructive pulmonary disease secondary to above Chronic and ongoing tobacco dependence of greater than 50 years Coronary artery disease with previous stent placement Abdominal aortic aneurysm with previous stent placement History of cerebral vascular accident History of Watchman procedure Hyperlipidemia Hypertension Recommendation: Considering the clinical improvement and considering the improvement noted on the chest x-ray and considering that the patient wants to go home, I will clear the patient for discharge. Suggest Levaquin on outpatient basis for 7 more days Continue bronchodilators as listed no need for home oxygen. Reevaluate in my office within 1 week Time with Patient: Less than 30
[2024-02-28 11:58] VITALS: BP 165/66; PULSE 62
--- NOTE | 2024-02-28 13:32 | P.DS ---
Providers Date of admission: 02/25/24 18:38 Expected date of discharge: 02/28/24 Attending physician: Zachery Vang MD Consults: 02/25/24 18:35 Consult Physician Urgent Consulting Provider: Gerardo Burris Consult Reason/Comments: hypoxic resp failure, copd, cap Do you want consulting provider notified?: Yes Primary care physician: [facility] Course: Mr. Natarajan is a 68-year-old gentleman with a medical history significant for COPD who presented with dyspnea and cough. Initial chest x-ray showed right lower lobe infiltrate. He was admitted and treated for COPD exacerbation and community-acquired pneumonia. Over the course of his hospitalization, his condition significantly improved. On my interaction with him today, he is denying any shortness of breath. Cough is minimal. Stated he was up and walking without any issues. He was weaned down to room air. Chest x-ray was done and showed improvement in previous right-sided infiltrate. Suspect he may have had an aspiration event. Pulmonology evaluated today and recommended discharge with Levaquin. Will be given a 5-day course of Levaquin along with 5 days of prednisone. Instructed to return to the ED immediately with any recurrent symptoms. Advise follow-up with his primary care physician and pulmonology outpatient. Discharge diagnoses 1. COPD exacerbation 2. Commune acquired pneumonia Discharge coordination time greater than 30 minutes Patient Condition at Discharge: Good Plan - Discharge Summary New Discharge Prescriptions: New Levofloxacin [Levaquin] 750 mg PO DAILY 1 Days #5 tab predniSONE [Deltasone] 40 mg PO DAILY #10 tab Continue Vardenafil HCl [Levitra] 10 mg PO DAILY PRN MDD 4 DOSES/MONTH PRN Reason: E.D. Tiotropium Br/Olodaterol HCl [Stiolto Respimat Inhaler (60)] 2 puff INHALATION RT-DAILY NIFEdipine [Adalat CC] 90 mg PO DAILY Atorvastatin [Lipitor] 80 mg PO HS Clopidogrel [Plavix] 75 mg PO DAILY Labetalol HCl 200 mg PO TID Fludrocortisone [Florinef] 0.1 mg PO DAILY Albuterol Sulfate [Albuterol Sulfate Hfa] 1 puff PO RT-Q6H PRN PRN Reason: Shortness Of Breath Discharge Medication List Atorvastatin [Lipitor] 80 mg PO HS 11/25/20 [History] Clopidogrel [Plavix] 75 mg PO DAILY 11/25/20 [History] Vardenafil HCl [Levitra] 10 mg PO DAILY PRN MDD 4 DOSES/MONTH 08/13/21 [History] Albuterol Sulfate [Albuterol Sulfate Hfa] 1 puff PO RT-Q6H PRN 02/25/24 [History] Fludrocortisone [Florinef] 0.1 mg PO DAILY 02/25/24 [History] Labetalol HCl 200 mg PO TID 02/25/24 [History] NIFEdipine [Adalat CC] 90 mg PO DAILY 02/25/24 [History] Tiotropium Br/Olodaterol HCl [Stiolto Respimat Inhaler (60)] 2 puff INHALATION RT-DAILY 02/25/24 [History] Levofloxacin [Levaquin] 750 mg PO DAILY 1 Days #5 tab 02/28/24 [Rx] predniSONE [Deltasone] 40 mg PO DAILY #10 tab 02/28/24 [Rx] Follow up Appointment(s)/Referral(s): Gerardo Burris MD [STAFF PHYSICIAN] - 1 Week [facility]Clinic [Primary Care Provider] - 1-2 days Patient Instructions/Handouts: COPD (Chronic Obstructive Pulmonary Disease) (ED) Activity/Diet/Wound Care/Special Instructions: Please take prednisone 40 mg daily starting tomorrow for 5 days Please take Levaquin 750 milligrams daily for 5 days starting tomorrow Please follow-up with the planer mill grader within 1 week Please follow-up with your primary care provider within 1 week Please return to the ED with any shortness of breath, fever, chills, worsening cough or any other associated symptoms Discharge Disposition: HOME SELF-CARE
[2024-02-29] MEDS ORDERED: methylPREDNISolone SOD SUCCI 40 MG/ML 1 ML VIAL IV SCH (09:00)
--- NOTE | 2024-03-01 17:52 | CDI ---
Documentation Clarification Form Date: 03/01/2024 05:40:56 PM From: Summer Ruano Phone: Admit Date: 02/25/2024 06:38:00 PM Patient Name: Abhay Natarajan Visit Number: [id number] Discharge Date: 02/28/2024 02:31:00 PM ATTENTION: The Clinical Documentation Specialists (CDI) and [facility] [employer] [facility] [employer] Coding Staff appreciate your assistance in clarifying documentation. Please respond to the clarification below the line at the bottom and electronically sign. The CDI & [employer] [facility] [employer] Coding staff will review the response and follow-up if needed. Please note: Queries are made part of the Legal Health Record. If you have any questions, please contact the author of this message via ITS. Dr. Gerardo Burris Your patient has diagnostic/radiology results: Sputum Culture Final Haemophilus influenza, BetaHemolyticStrepGroup G, Escherichia coli. Please clarify if there is an additional diagnosis and/or clinical significance related to this result. History/Risk Factors: 68yo M, CAP, AECOPD, GENE, Hyperkalemia d/tAKI, thrombocytopenia, HLD, HTN, DMII, smoker Clinical indicators: He is on 6L NC. Reports improved breathing. Coughwith clear/yellow sputum. Treatment: Patient was started on Rocephin/Azithromycin along with bronchodilators and admitted for further management. PO QD. DuoNeb QID scheduled. Symbicort 2 puff BID. SoluMedrol 40 mg IV TID. Telemetry monitoring. Pulmonary on board. Is there an additional diagnosis and/or clinical significance related to the above diagnostic/radiology result? Please select any/all that apply. [ ] Bacterial pneumoniadue to [ x] Haemophilus influenza [ x] BetaHemolyticStrepGroup G [ x] Escherichia coli [ ] Result is not clinically significant (no additional diagnosis) [ ] Other, please specify [ ] Unable to determine (Template Last Reviewed: October 2020) MTDD
== END 2024-02-28 14:31 | disposition home or self-care (01) | DRG 193 ==
LOC: EC 15:09 → 3SCARD 18:38
PROVIDERS: ADMIT Student in an Organized Health Care Education/Training Program; ATTEND Student in an Organized Health Care Education/Training Program
DX: J14 Pneumonia due to Hemophilus influenzae (principal); J96.01 Acute respiratory failure with hypoxia; N17.9 Acute kidney failure, unspecified; J44.0 Chronic obstructive pulmonary disease with (acute) lower respiratory infection; J44.1 Chronic obstructive pulmonary disease with (acute) exacerbation; D69.6 Thrombocytopenia, unspecified; J15.5 Pneumonia due to Escherichia coli; J15.4 Pneumonia due to other streptococci; E11.65 Type 2 diabetes mellitus with hyperglycemia; I71.40 Abdominal aortic aneurysm, without rupture, unspecified; I10 Essential (primary) hypertension; E87.5 Hyperkalemia; E78.5 Hyperlipidemia, unspecified; I25.10 Atherosclerotic heart disease of native coronary artery without angina pectoris; F17.210 Nicotine dependence, cigarettes, uncomplicated; T38.0X5A Adverse effect of glucocorticoids and synthetic analogues, initial encounter; Z79.52 Long term (current) use of systemic steroids; Z79.02 Long term (current) use of antithrombotics/antiplatelets; Z79.82 Long term (current) use of aspirin; I25.2 Old myocardial infarction; Z95.5 Presence of coronary angioplasty implant and graft; Z88.8 Allergy status to other drugs, medicaments and biological substances; Z79.51 Long term (current) use of inhaled steroids; Z79.899 Other long term (current) drug therapy; Z95.818 Presence of other cardiac implants and grafts; Z86.73 Personal history of transient ischemic attack (TIA), and cerebral infarction without residual deficits; Z85.118 Personal history of other malignant neoplasm of bronchus and lung; Z85.528 Personal history of other malignant neoplasm of kidney
CPT/HCPCS: 36415; 71045; 71046; 80048; 80053; 83605; 83880; 84145; 84484; 85025; 85027; 85610; 85730; 87040; 87070; 87077; 87186; 87205; 87449; 87636; 93005; 94640; 94760; 96361; 96365; 96366; 96367; 96372; 96375; 96376; 99291

== ENCOUNTER 2024-03-14 12:58 | Emergency (ER) | payer OTHER, MEDICARE ==
--- NOTE | 2024-03-14 13:18 | ED ---
Skin/Abscess/FB HPI - General Chief complaint: Skin/Abscess/Foreign Body Stated complaint: R Arm Pain/Swollen Time Seen by Provider: 03/14/24 13:17 Source: patient, RN notes reviewed Mode of arrival: ambulatory Limitations: no limitations - History of Present Illness Initial comments: This is a 68-year-old male presents emergency department chief complaint of erythema and pain to his right mid arm. Patient states that he has noticed the redness and swelling over the past 4 days has been able to palpate an area of tenderness to the medial right arm as well. He states that he had a recent blood draw about 4 days ago in the general area where there is redness and irritation. 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 Currently patient is denying systemic symptoms such as fevers, chills, chest pain,, heart palpitations, dizziness, lightheadedness. He is on Plavix. - Related Data Home Medications Medication Instructions Recorded Confirmed Atorvastatin [Lipitor] 80 mg PO HS 11/25/20 02/25/24 Clopidogrel [Plavix] 75 mg PO DAILY 11/25/20 02/25/24 Vardenafil HCl [Levitra] 10 mg PO DAILY PRN MDD 4 08/13/21 02/25/24 DOSES/MONTH Albuterol Sulfate [Albuterol 1 puff PO RT-Q6H PRN 02/25/24 02/25/24 Sulfate Hfa] Fludrocortisone [Florinef] 0.1 mg PO DAILY 02/25/24 02/25/24 Labetalol HCl 200 mg PO TID 02/25/24 02/25/24 NIFEdipine [Adalat CC] 90 mg PO DAILY 02/25/24 02/25/24 Tiotropium Br/Olodaterol HCl 2 puff INHALATION RT-DAILY 02/25/24 02/25/24 [Stiolto Respimat Inhaler (60)] Previous Rx's Medication Instructions Recorded Levofloxacin [Levaquin] 750 mg PO DAILY 1 Days #5 tab 02/28/24 predniSONE [Deltasone] 40 mg PO DAILY #10 tab 02/28/24 Cephalexin [Keflex] 500 mg PO Q6HR #40 cap 03/14/24 Allergies Allergy/AdvReac Type Severity Reaction Status Date / Time dexamethasone Allergy Chest Pain Verified 02/25/24 18:57 Review of Systems ROS Statement: Those systems with pertinent positive or pertinent negative responses have been documented in the HPI. ROS Other: All systems not noted in ROS Statement are negative. Past Medical History Past Medical History: Cancer, Diabetes Mellitus, GERD/Reflux, Hyperlipidemia, Hypertension, Myocardial Infarction (CO) Additional Past Medical History / Comment(s): AAA - pt states 4.7cm [facility] Last Myocardial Infarction Date:: 05/2014 History of Any Multi-Drug Resistant Organisms: None Reported Past Surgical History: Heart Catheterization With Stent, Hernia Repair, Tonsillectomy Additional Past Surgical History / Comment(s): kidney stent nasal polys removed Past Anesthesia/Blood Transfusion Reactions: No Reported Reaction Date of Last Stent Placement:: 05/16/2014 Past Psychological History: No Psychological Hx Reported Smoking Status: Current every day smoker Past Alcohol Use History: Rare Past Drug Use History: None Reported - Past Family History Sister(s) Family Medical History: Hyperlipidemia, Myocardial Infarction (CO) Additional Family Medical History / Comment(s): Mutiple stents - CO at age 66 and at that time Mother History Unknown: Yes Father Additional Family Medical History / Comment(s): Rheumatic fever/murmur, enlarged heart and of this at the age of 67yrs. General Exam Limitations: no limitations General appearance: alert, in no apparent distress Head exam: Present: atraumatic, normocephalic, normal inspection Eye exam: Present: normal appearance, PERRL, EOMI. Absent: scleral icterus, conjunctival injection, periorbital swelling ENT exam: Present: normal exam, mucous membranes moist Neck exam: Present: normal inspection. Absent: tenderness, meningismus, lymphadenopathy Respiratory exam: Present: normal lung sounds bilaterally. Absent: respiratory distress, wheezes, rales, rhonchi, stridor Cardiovascular Exam: Present: regular rate, normal rhythm, normal heart sounds. Absent: systolic murmur, diastolic murmur, rubs, gallop, clicks GI/Abdominal exam: Present: soft, normal bowel sounds. Absent: distended, tenderness, guarding, rebound, rigid Right Upper Arm exam: Present: tenderness, swelling, other (medial erythema and palpable tenderness, no purulence) Vascular: Present: normal capillary refill, radial pulse (2+). Absent: vascular compromise Skin exam: Present: warm, dry, intact, normal color. Absent: rash Course Vital Signs 03/14/24 03/14/24 13:03 14:24 Temperature 98 F 97.9 F Pulse Rate 67 76 Respiratory 16 18 Rate Blood Pressure 150/56 152/80 O2 Sat by Pulse 98 97 Oximetry Medical Decision Making - Medical Decision Making Was pt. sent in by a medical professional or institution (, [facility], INSPECTOR RECEIVING, urgent care, hospital, or [facility]...) When possible be specific @ -No Did you speak to anyone other than the patient for history (EMS, parent, family, police, friend...)? What history was obtained from this source @ -The patient's at bedside states that patient was recently admitted to the emergency department due to bilateral pneumonia and has a history of COPD. Did you review nursing and triage notes (agree or disagree)? Why? @ -I reviewed and agree with nursing and triage notes Were old charts reviewed (outside hosp., previous admission, EMS record, old EKG, old radiological studies, urgent care reports/EKG's, [facility] records)? Report findings @ -No old charts were reviewed Differential Diagnosis (chest pain, altered mental status, abdominal pain women, abdominal pain men, vaginal bleeding, weakness, fever, dyspnea, syncope, headac he, dizziness, GI bleed, back pain, seizure, CVA, palpatations, mental health, musculoskeletal)? @ -Superficial thrombophlebitis, DVT, superficial blood clot, cellulitis, this list is not all inclusive. EKG interpreted by me (3pts min.). @ -none X-rays interpreted by me (1pt min.). @ -None done CT interpreted by me (1pt min.). @ -None done U/S interpreted by me (1pt. min.). @ -Duplex ultrasound of the right upper extremity no deep venous thrombosis, some superficial thrombosis in the basilic vein. What testing was considered but not performed or refused? (CT, X-rays, U/S, labs)? Why? @ -None What meds were considered but not given or refused? Why? @ -None Did you discuss the management of the patient with other professionals (professionals i.e. , [facility], INS[employer], lab, RT, psych nurse, director social service, tax auditor, teacher, immigration services officer, medical case worker)? Give summary @ -No Was smoking cessation discussed for >3mins.? @ -No Was critical care preformed (if so, how long)? @ -No Were there social determinants of health that impacted care today? How? (Homelessness, low income, unemployed, alcoholism, drug addiction, transportation, low edu. Level, literacy, decrease access to med. care, half-way, rehab)? @ -No Was there de-escalation of care discussed even if they declined (Discuss DNR or withdrawal of care, Hospice)? DNR status @ -No What co-morbidities impacted this encounter? (DM, HTN, Smoking, COPD, CAD, Cancer, CVA, ARF, Chemo, Hep., AIDS, mental health diagnosis, sleep apnea, morbid obesity)? @ -None Was patient admitted / discharged? Hospital course, mention meds given and route, prescriptions, significant lab abnormalities, going to OR and other pertinent info. @ -Discharge. 68-year-old male with right upper extremity erythema and pain. On examination patient has erythema to the right mid extremity vitals are stable upon arrival. He will be evaluated via duplex ultrasound to rule out potential blood clot. Ultrasound negative for DVT. Patient will be sent home on oral antibiotics for potential superficial thrombophlebitis with overlying signs of cellulitis. Patient was placed in an Elliot wrap continue to use compression, elevation and warm compresses. Patient is on Plavix at home. All questions answered at bedside and strict return parameters discussed and he is verbalized understanding. Case discussed with Dr. Rodriguez. Undiagnosed new problem with uncertain prognosis? @ -No Drug Therapy requiring intensive monitoring for toxicity (Heparin, Nitro, Insulin, Cardizem)? @ -No Were any procedures done? @ -No Diagnosis/symptom? @ -superficial thrombophlebitis, cellulitis Acute, or Chronic, or Acute on Chronic? @ -Acute Uncomplicated (without systemic symptoms) or Complicated (systemic symptoms)? @ -Uncomplicated Side effects of treatment? @ -No Exacerbation, Progression, or Severe Exacerbation? @ -No Poses a threat to life or bodily function? How? (Chest pain, [place], CO, pneumonia, PE, COPD, DKA, ARF, appy, cholecystitis, CVA, Diverticulitis, Homicidal, Suicidal, threat to staff... and all critical care pts) @ -No Disposition Clinical Impression: Superficial thrombophlebitis of right upper extremity, Cellulitis Disposition: HOME SELF-CARE Condition: Good Instructions (If sedation given, give patient instructions): Cellulitis (ED), Superficial Thrombophlebitis (ED) Additional Instructions: Return to the emergency department if your symptoms worsen or do not improve. Continue to rest, compress, and elevate the right upper extremity. Complete full course of antibiotics as prescribed. Recommend that you follow up with your PCP in the next 10 days for re-evaluation. Prescriptions: Cephalexin [Keflex] 500 mg PO Q6HR #40 cap Is patient prescribed a controlled substance at d/c from ED?: No Referrals: [facility],Clinic [Primary Care Provider] - 1-2 days Time of Disposition: 14:18
--- NOTE | 2024-03-14 14:05 | US ---
EXAMINATION TYPE: US venous doppler duplex UE RT DATE OF EXAM: 03/14/2024 COMPARISON: NONE CLINICAL INDICATION: Male, 68 years old with history of erythema at antecubital fossa, induration, hx DVT; Hx of DVT in left arm. Swelling in right forearm. IV in forearm 4 days ago. Not on blood thinne rs SIDE PERFORMED: Right Right Arm: Echoes seen in the superficial basilic vein above and below elbow. No evidence for DVT see n. IMPRESSION: 1. No deep venous thrombosis right upper extremity. 2. Some superficial thrombus within the basilic vein may be present.
[2024-03-14 14:25] VITALS: BP 152/80; PULSE 76; RESP 18; TEMP 97.9
== END 2024-03-14 14:26 | disposition home or self-care (01) ==
LOC: EC 12:58
DX: L03.113 Cellulitis of right upper limb (principal); I80.8 Phlebitis and thrombophlebitis of other sites; F17.200 Nicotine dependence, unspecified, uncomplicated; Z88.8 Allergy status to other drugs, medicaments and biological substances
CPT/HCPCS: 99283